=== PATIENT | female | born 1980 | race Caucasian/White ===

== ENCOUNTER → 2018-03-29 14:41 | Outpatient (CLI) | payer MEDICAID, OTHER, SELFPAY ==
--- NOTE | 2018-03-29 14:44 | DI.MRI.S_ITS ---
PROCEDURE: MR SHOULDER LT WO CON INDICATIONS: Left shoulder pain TECHNIQUE: Noncontrast oblique coronal T2 fast spin echo with fat saturation, oblique sagittal T1 spin echo and T2 fast spin echo with fat saturation, axial T1 spin echo and T2 fast spin echo with fat saturation through the shoulder. COMPARISON: None. FINDINGS: Image quality: Diagnostic. Rotator cuff: No full-thickness or high-grade partial-thickness tear of the rotator cuff is identified. There is mild supraspinatus and infraspinatus tendinopathy without significant partial-thickness tearing. The subscapularis and teres minor tendons are intact. There is no significant atrophy of the rotator cuff muscles. Bones and bursae: No acute fracture, dislocation, or suspicious osseous lesion is evident involving the left shoulder bones. No significant degenerative changes of the glenohumeral joint are present. There are mild degenerative changes of the acromioclavicular joint. There is thickening of the subacromial subdeltoid bursa without significant fluid contained within the bursa. Capsule and soft tissues: Evaluation of the labrum and the glenohumeral ligaments is difficult without intra-articular contrast. No acute injuries are suspected. There is a questionable posteroinferior labral tear. The long head of the biceps tendon demonstrates slightly increased signal near the biceps anchor. No significant tearing is evident. IMPRESSION: 1. Mild supraspinatus and infraspinatus tendinopathy. 2. Questionable posteroinferior labral tear. If there is clinical concern for labral pathology, please consider MRI with intra-articular contrast for further evaluation. 3. Mild tendinopathy involving the intra-articular portion of the long head of the biceps tendon. 4. Mild degenerative changes of the acromioclavicular joint. Please correlate clinically to exclude subacromial impingement. Dictated by: Anjel Palmer M.D. on 03/29/2018 at 15:41 Approved by: Anjel Palmer M.D. on 03/29/2018 at 15:45
== END ==
PROVIDERS: Family Provider Family Medicine; PCP Family Medicine; Visit Provider Family Medicine
DX: M19.012 Primary osteoarthritis, left shoulder (principal)
CPT/HCPCS: 73221

== ENCOUNTER 2019-04-26 22:08 | Emergency (ER) | payer MEDICAID, OTHER, SELFPAY ==
[2019-04-26 22:23] VITALS: BP 164/97; PULSE 88; RESP 18; TEMP 36.6; O2SAT 99; BMI 42.9
--- NOTE | 2019-04-26 23:02 | ED.ABDPAIN ---
HPI - Abdominal Pain General Chief Complaint: Abdominal Pain Stated Complaint: LOWER RT SIDED ABD PAIN Time Seen by Provider: 04/26/19 22:37 Source: patient Mode of arrival: ambulatory Limitations: no limitations History of Present Illness HPI narrative: Patient is a 38-year-old female who presents with right lower quadrant pain and back pain. She says it seems he really eating to the back off and on started suddenly today. No nausea no vomiting. Pain comes and goes in waves. No history of kidney stones. She still has her appendix. She was doing well yesterday and this morning. No fever or chills. MD complaint: abdominal pain Severity: moderate Quality: cramping Relieving factors: nothing Exacerbating factors: nothing Related Data Previous Rx's Medication Instructions Recorded triamcinolone acetonide [Nasacort] 0 INTRANASAL QDAY #1 bot 02/10/17 olopatadine [Pataday] 0.2 % OPHTH Q DAY #30 % 04/21/17 buspirone 5 mg tablet 5 mg PO BID #60 tab 03/08/19 triamcinolone acetonide 0.1 % See Rx Instructions TOP BID #30 03/08/19 topical cream gram Allergies Allergy/AdvReac Type Severity Reaction Status Date / Time Penicillins [PENICILLINS] Allergy Severe anaphylaxis Verified 03/08/19 15:32 acetaminophen Allergy Intermediate SWELLING / Verified 03/08/19 15:32 [From DARVOCET-N] RASH propoxyphene Allergy Intermediate SWELLING / Verified 03/08/19 15:32 [From DARVOCET-N] RASH adhesive [ADHESIVE] Allergy Mild paper tape Verified 03/08/19 15:32 codeine [CODEINE] Allergy Mild rash and Verified 03/08/19 15:32 swelling latex [LATEX] Allergy Mild rash Verified 03/08/19 15:32 Review of Systems Review of Systems GENERAL: Denies chills, fatigue, malaise, fever, sweats, travel HEENT: Denies sinus pain, ear pain, sore throat, difficulty swallowing, neck pain RESPIRATORY: Denies dyspnea, cough, wheezing, hemoptysis, sputum. CARDIOVASCULAR: Denies chest pain, palpitations, orthopnea, edema GASTROINTESTINAL: See HPI : Denies dysuria, frequency, incontinence, hematuria, urinary retention, flank pain. MUSCULOSKELETAL: Denies weakness, joint pain, or bony pain SKIN: No rash, no erythema, no pruritus NEUROLOGIC: Denies weakness, dizziness, headache, numbness, change in speech, confusion PSYCHIATRIC: No concerning psychosocial issues. 12 point review of systems is negative except for those stated above and HPI [facility] Medical History Anxiety (Chronic) Depression (Chronic) Surgical History History of arthroscopic knee surgery (Resolved) Status post hysterectomy (Resolved) Status post tonsillectomy and adenoidectomy (Resolved) Social History marital status: Smoking Status: Former smoker alcohol intake: current (ON OCCASION ) substance use type: marijuana Social History marital status: Smoking Status: Former smoker alcohol intake: current (ON OCCASION ) substance use type: marijuana Exam Initial Vital Signs Initial Vital Signs: Vital Signs Temperature 98 F 04/26/19 22:23 Pulse Rate 88 04/26/19 22:23 Respiratory Rate 18 04/26/19 22:23 Blood Pressure 164/97 H 04/26/19 22:23 Pulse Oximetry 99 04/26/19 22:23 GENERAL: Well-appearing, well-nourished and in no acute distress. HEENT: Head atraumatic,EOMI, pupils reactive, face symmetric, moist mucous membranes CARDIOVASCULAR: Regular rate and rhythm without murmurs, rubs or gallops. RESPIRATORY: Breath sounds equal bilaterally, no wheezes rales or rhonchi. ABDOMEN: Soft, no real right lower quadrant pain no guarding no rebound no right upper quadrant : No CVA tenderness EXTREMITIES: Normal range of motion, no clubbing or edema. Neurovascularly intact NEUROLOGICAL: Alert and oriented x4.Normal gait and speech. Cranial nerves II through XII grossly intact. SKIN: Warm, dry, no laceration, no petechiae, no rashes or lesions. Course Orders Ordered: ED Orders 04/26/19 22:43 CT kidney ureter bladder (KUB) Stat 04/26/19 22:57 Complete Blood Count AUTO DIFF Stat Comprehensive Metabolic Panel Stat Lipase Stat Vital Signs - 8 hr 04/26/19 22:23 04/27/19 01:17 Temperature 98 F Pulse Rate 88 65 Respiratory Rate 18 16 Blood Pressure 164/97 H 150/90 H Pulse Oximetry 99 98 MDM - Abdominal Pain Lab Data Attestation: I reviewed the patient's lab results. Result diagrams: 04/26/19 22:57 04/26/19 22:57 Lab Results 04/26/19 04/26/19 Range/Units 22:57 22:57 WBC 11.3 H (4.5-11.0) X10^3/uL RBC 4.43 (4.0-5.2) X10^6/uL Hgb 13.6 (12.0-16.0) g/dL Hct 39.3 (36-46) % MCV 88.7 (80-100) fL MCH 30.7 (26-34) PG MCHC 34.6 (30-36) % RDW 13.0 (11.6-14.8) % Plt Count 279 (150-400) X10^3/uL Neut % (Auto) 53.6 (50-75) % Lymph % (Auto) 35.1 (25-40) % [place] % (Auto) 8.4 (3-14) % Eos % (Auto) 2.3 (2-4) % Baso % (Auto) 0.6 (0-2) % Neut # (Auto) 6100 (0311-7747) /uL Lymph # (Auto) 4000 (4115-6151) /uL Castro # (Auto) 900 (0-900) /uL Eos # (Auto) 300 (0-450) /uL Baso # (Auto) 100 (0-100) /uL Sodium 137 (137-145) mmol/L Potassium 3.6 (3.4-5.1) mmol/L Chloride 104 (98-107) mmol/L Carbon Dioxide 26 (22-32) mmol/L BUN 16 (7-17) mg/dL Creatinine 1.00 (0.52-1.04) mg/dL Estimated GFR > 60.0 (>60) mL/min BUN/Creatinine Ratio 16.0 (6-22) Glucose 99 (70-100) mg/dL Calcium 8.9 (8.4-10.2) mg/dL Total Bilirubin 0.3 (0.2-1.3) mg/dL AST 23 (14-36) IU/L ALT 24 (9-52) IU/L Alkaline Phosphatase 41 (38-126) U/L Total Protein 7.0 (6.3-8.2) g/dL Albumin 4.1 (3.5-5.0) g/dL Globulin 2.9 (1.7-4.1) g/dL Albumin/Globulin Ratio 1.4 (1.0-2.8) Lipase 295 (23-300) U/L Point of care testing: Urine Dip Bedside Urine Glucose Negative Bedside Urine Bilirubin - Negative Bedside Urine Ketone - Negative Urine Specific [place] 1.010 Bedside Urine Occult Blood - Negative Bedside Urine pH 6.0 Bedside Urine Protein - Negative Bedside Urine Urobilinogen - Negative Bedside Urine Nitrite - Negative Bedside Urine Leukocytes +/- 15 Esterase MDM Narrative Medical decision making narrative: 1:[address] scanner has gone down. Patient overall is feeling better. She is requesting to go home. She really has no right lower quadrant pain it seems to be right-sided flank pain. He discussed appendicitis not ruled out. Still possible kidney stone. Mild leukocytosis. She is is reliable she has a PCP Dr. Palma which she is going to try and see tomorrow. She understands warning signs of when to return to the emergency department. Discharge Plan Departure Patient Disposition: Home Clinical Impression: Abdominal pain Qualifiers: Abdominal location: right lower quadrant Qualified Code(s): R10.31 - Right lower quadrant pain Discharge Date/Time: 04/27/19 01:17 Interventions: ED Discharge Assessment Last Done: 04/27/19 01:17 Instructions: DI for Appendicitis -- Adult, DI for Kidney Stones Activity Restrictions/Additional Instructions: *You have been diagnosed with right lower quadrant pain *What to do: Appendicitis has not yet been ruled out. He will likely need a CT scan for this. *Continue to take medications as directed Tylenol or ibuprofen as directed if needed for pain *Follow up with your primary care provider in 2-3 days *Return to ER if you should have increasing right lower quadrant pain, verbal pain, fever, confusion or any new, worsening or concerning symptoms Prescriptions: No Action buspirone 5 mg tablet 5 mg PO BID Qty: 60 RF: 1 triamcinolone acetonide 0.1 % cream See Rx Instructions TOP BID Qty: 30 RF: 0 triamcinolone acetonide [Nasacort] 55 MCG/PUFF aerosol,spray Intranasal QDAY Qty: 1 RF: 3 olopatadine [Pataday] 2.5 ML drops 0.2 % OPHTH Q DAY Qty: 30 RF: 3 Referrals: Ernst Palma MD [Primary Care Provider] -
[2019-04-26 23:08] LABS: Add Manual Diff / Slide Review NO; Basophils Absolute Auto 100 /uL (0-100); Basophils Percent Auto 0.6 % (0-2); Eosinophils Absolute Auto 300 /uL (0-450); Eosinophils Percent Auto 2.3 % (2-4); Hematocrit 39.3 % (36-46); Hemoglobin 13.6 g/dL (12.0-16.0); Lymphocytes Absolute Auto 4000 /uL (1100-4500); Lymphocytes Percent Auto 35.1 % (25-40); Mean Corpuscular HGB Conc 34.6 % (30-36); Mean Corpuscular Hemoglobin 30.7 PG (26-34); Mean Corpuscular Volume 88.7 fL (80-100); Monocytes Absolute Auto 900 /uL (0-900); Monocytes Percent Auto 8.4 % (3-14); Neutrophils Absolute Auto 6100 /uL (1500-7000); Neutrophils Percent Auto 53.6 % (50-75); Platelet Count 279 X10^3/uL (150-400); Red Blood Cell Count 4.43 X10^6/uL (4.0-5.2); White Blood Cell Count 11.3 X10^3/uL (4.5-11.0)
[2019-04-26 23:14] LABS: Alanine Aminotransferase 24 IU/L (9-52); Albumin 4.1 g/dL (3.5-5.0); Albumin Globulin Ratio 1.4 (1.0-2.8); Alkaline Phosphatase 41 U/L (38-126); Aspartate Aminotransferase 23 IU/L (14-36); Bilirubin Total 0.3 mg/dL (0.2-1.3); Blood Urea Nitrogen 16 mg/dL (7-17); Calcium 8.9 mg/dL (8.4-10.2); Carbon Dioxide 26 mmol/L (22-32); Chloride 104 mmol/L (98-107); Estimated Glomerular Filt Rate > 60.0 mL/min (>60); Globulin 2.9 g/dL (1.7-4.1); Glucose 99 mg/dL (70-100); HEMOLYSIS < 15 (0-50); Lipase 295 U/L (23-300); Potassium 3.6 mmol/L (3.4-5.1); Sodium 137 mmol/L (137-145)
[2019-04-27 01:17] VITALS: BP 150/90; PULSE 65; RESP 16; O2SAT 98
== END 2019-04-27 01:17 | disposition home or self-care (01) ==
PROVIDERS: Emergency Provider Emergency Medicine; Family Provider Family Medicine; PCP Family Medicine
DX: R10.31 Right lower quadrant pain (principal)
CPT/HCPCS: 36591; 80053; 81003; 83690; 85025; 99282; 99283

== ENCOUNTER → 2019-05-20 11:30 | Outpatient (CLI) | payer MEDICAID, OTHER, SELFPAY ==
--- NOTE | 2019-05-20 12:28 | DI.CT.S_ITS ---
PROCEDURE: CT ABDOMEN PELVIS W CON INDICATIONS: RLQ pain, elevated WBC TECHNIQUE: After the administration of oral and intravenous contrast, 5 mm thick sections acquired from the diaphragms to the symphysis. 5 mm thick coronal and sagittal reformats were performed. For radiation dose reduction, the following was used: automated exposure control, adjustment of mA and/or kV according to patient size. COMPARISON: [facility], CT, ABDOMEN/PELVIS WITH CONTRAST, 07/05/2007, 13:55. FINDINGS: Image quality: Excellent. ABDOMEN: Lung bases: Lung bases are clear. Heart size is normal. Solid organs: Liver is normal in size and enhancement. Subcentimeter right hepatic lobe hypodensity is too small to characterize but likely represent hemangioma. This was not visualized on the comparison study likely related to phase of contrast-enhancement. Gallbladder is surgically absent. Biliary system is non-dilated. Pancreas enhances normally. Spleen is normal in size and enhancement. No adrenal nodules. Kidneys are normal in size and enhancement, without hydronephrosis. Peritoneum and bowel: Stomach, small bowel, and colon loops are normal in caliber and wall thickness. No free fluid or air. The visualized appendix appears normal. Scattered colonic diverticula without acute inflammation. Nodes and vessels: No retroperitoneal or mesenteric adenopathy. Aorta and inferior vena cava are normal in caliber. Miscellaneous: No ventral hernias. PELVIS: Genitourinary: Bladder wall thickness is normal. Miscellaneous: No inguinal hernias or adenopathy. Bones: No suspicious bony lesions. No acute vertebral body compression fractures. Multilevel lumbar spondylosis most severe at L5-S1. IMPRESSION: 1. CT abdomen and pelvis without acute abnormalities to explain patient's symptoms. 2. Normal appendix. 3. Scattered, scant colonic diverticula without acute inflammation. 4. Status post cholecystectomy. 5. Subcentimeter right hepatic lobe hypodensity which is to small to accurately characterize. This likely represents a hepatic hemangioma. This was not previously visualized comparison study dated 07/05/2007, likely related to phase of contrast enhancement. Dictated by: Dhaval Scott M.D. on 05/20/2019 at 13:52 Approved by: Dhaval Scott M.D. on 05/20/2019 at 13:59
== END ==
PROVIDERS: PCP Family Medicine; Visit Provider Family Medicine
DX: R10.31 Right lower quadrant pain (principal); D72.829 Elevated white blood cell count, unspecified; K57.90 Diverticulosis of intestine, part unspecified, without perforation or abscess without bleeding; Z90.49 Acquired absence of other specified parts of digestive tract
CPT/HCPCS: 74177; Q9967

== ENCOUNTER 2019-10-25 09:41 | Emergency (ER) | payer MEDICAID, SELFPAY ==
[2019-10-25 09:45] VITALS: BP 156/94; PULSE 78; RESP 18; TEMP 36.6; O2SAT 100; BMI 48.0
--- NOTE | 2019-10-25 09:58 | DI.RAD.S_ITS ---
PROCEDURE: XR CHEST 2V INDICATIONS: Left sided chest pain that radiates to back. TECHNIQUE: 2 views of the chest were acquired. COMPARISON: [facility], , CHEST 1 VIEW, 10/08/2015, 12:13. FINDINGS: Surgical changes and devices: None. Lungs and pleura: Mild increase of the vascular markings and bilateral hilar region is seen. No definite focal infiltrate. No pleural effusions or pneumothorax. Mediastinum: Mediastinal contours are normal. Heart size is normal. Bones and chest wall: No suspicious bony abnormalities. Soft tissues appear unremarkable. IMPRESSION: Findings may represent mild reactive airway disease. No definite focal infiltrate. No pleural effusion or pneumothorax. Dictated by: Earl Baker M.D. on 10/25/2019 at 11:17 Approved by: Earl Baker M.D. on 10/25/2019 at 11:18
--- NOTE | 2019-10-25 10:25 | ED_ITS ---
HPI - Chest Pain General Chief Complaint: Chest Pain Stated Complaint: chest pain Time Seen by Provider: 10/25/19 10:24 Source: patient Mode of arrival: Ambulatory Limitations: no limitations History of Present Illness HPI narrative: Patient year old female who presents with left-sided rib pain. It started this morning when she woke up. It's right underneath her left breast it's constant in nature nonradiating it doesn't hurt when she breathes or palpates. She has never had anything like this in the past she did take 600 mg of ibuprofen prior to arrival it has not helped. She denies any shortness of breath no pain with exertion it does not hurt when she moves or changes position. She denies any physical activity. MD complaint: chest pain Onset (ago): hour(s) Duration: constant Onset: during rest Pain location: left chest Severity: mild Quality: sharp Pain radiation: none Relieving factors: nothing Exacerbating factors: nothing Related Data Home Medications Medication Instructions Recorded Confirmed buspirone 5 mg PO BID PRN 10/25/19 10/25/19 olopatadine [Pataday] 0.2 % OPHTH DAILY 10/25/19 10/25/19 triamcinolone acetonide [Nasacort] 1 spray INTRANASAL QDAY 10/25/19 10/25/19 Previous Rx's Medication Instructions Recorded triamcinolone acetonide 0.1 % See Rx Instructions TOP BID #30 03/08/19 topical cream gram omeprazole magnesium 20 mg 20 mg PO DAILY #30 tab 10/18/19 tablet,delayed release Allergies Allergy/AdvReac Type Severity Reaction Status Date / Time Penicillins [PENICILLINS] Allergy Severe anaphylaxis Verified 10/25/19 09:55 propoxyphene Allergy Intermediate SWELLING / Verified 10/25/19 09:55 [From LEONID-N] RASH adhesive [ADHESIVE] Allergy Mild paper tape Verified 10/25/19 09:55 codeine [CODEINE] Allergy Mild rash and Verified 10/25/19 09:55 swelling latex [LATEX] Allergy Mild rash Verified 10/25/19 09:55 Review of Systems Review of Systems Narrative: GENERAL: Denies chills, fatigue, malaise, fever, sweats, travel HEENT: Denies sinus pain, ear pain, sore throat, difficulty swallowing, neck pain RESPIRATORY: Denies dyspnea, cough, wheezing, hemoptysis, sputum. CARDIOVASCULAR: See HPI GASTROINTESTINAL: Denies nausea, vomiting, abdominal pain, diarrhea, constipatio n, melena. : Denies dysuria, frequency, incontinence, hematuria, urinary retention, flank pain. MUSCULOSKELETAL: Denies weakness, joint pain, or bony pain SKIN: No rash, no erythema, no pruritus NEUROLOGIC: Denies weakness, dizziness, headache, numbness, change in speech, confusion PSYCHIATRIC: No concerning psychosocial issues. 12 point review of systems is negative except for those stated above and HPI Patient History Medical History Anxiety (Chronic) Depression (Chronic) GERD (gastroesophageal reflux disease) (Acute) Surgical History History of arthroscopic knee surgery (Resolved) Status post hysterectomy (Resolved) Status post tonsillectomy and adenoidectomy (Resolved) Social History marital status: Smoking Status: Former smoker alcohol intake: current (ON OCCASION ) substance use type: marijuana Smoking Status: Former smoker alcohol intake frequency: 0-2 drinks per day Substance Use Type: marijuana Exam Initial Vital Signs Initial Vital Signs: Vital Signs Temperature 97.8 F 10/25/19 09:45 Pulse Rate 78 10/25/19 09:45 Respiratory Rate 18 10/25/19 09:45 Blood Pressure 156/94 H 10/25/19 09:45 Pulse Oximetry 100 10/25/19 09:45 GENERAL: Well-appearing, well-nourished and in no acute distress. HEENT: Head atraumatic,EOMI, pupils reactive, face symmetric, moist mucous membranes CARDIOVASCULAR: Regular rate and rhythm without murmurs, rubs or gallops. No rash pain is not reproducible to palpation. RESPIRATORY: Breath sounds equal bilaterally, no wheezes rales or rhonchi. ABDOMEN: Soft, nontender. Normoactive bowel sounds all 4 quadrants. No guarding or rebound. EXTREMITIES: Normal range of motion, no clubbing or edema. Neurovascularly intact NEUROLOGICAL: Alert and oriented x4.Normal gait and speech. SKIN: Warm, dry, no laceration, no petechiae, no rashes or lesions. Scores HEART Score Heart Score history: Slightly Suspicious Heart Score EKG: Normal Heart Score Age: < 45 years old Heart Score risk factors: No known risk factors Heart Score troponin: < or = to normal limit Heart Score Total: 0 PERC Score Age greater than or equal to 50 years: No Heart rate greater than or equal to 100 bpm: No Room Air O2 Sat less than 95%: No Unilateral leg swelling: No Recent trauma or surgery: No Hemoptysis: No Prior PE or DVT: No Hormone Use: No Total PERC Score: 0 Course Orders Ordered: ED Orders 10/25/19 09:58 Chest [XR chest 2V] Stat EKG-12 Lead Stat 10/25/19 10:27 Complete Blood Count AUTO DIFF Stat Comprehensive Metabolic Panel Stat Lipase Stat Magnesium Stat Partial Thromboplastin Time Stat Prothrombin Time INR Stat Troponin & CK Cardiac Panel Stat 10/25/19 12:38 Troponin I Stat Vital Signs Vital signs: Vital Signs - 8 hr 10/25/19 09:45 10/25/19 11:28 10/25/19 12:30 Temperature 97.8 F Pulse Rate 78 62 80 Respiratory Rate 18 18 18 Blood Pressure 156/94 H Blood Pressure [Right Arm] 149/99 H 150/78 H Pulse Oximetry 100 98 99 10/25/19 13:28 Temperature Pulse Rate 72 Respiratory Rate 15 Blood Pressure 123/89 Blood Pressure [Right Arm] Pulse Oximetry 99 MDM - Chest Pain Lab Data Attestation: I reviewed the patient's lab results. Result diagrams: 10/25/19 10:27 10/25/19 10:27 Labs: Lab Results 10/25/19 10/25/19 10/25/19 Range/Units 10:27 10:27 10:27 WBC 7.9 (4.5-11.0) X10^3/uL RBC 4.68 (4.0-5.2) X10^6/uL Hgb 14.5 (12.0-16.0) g/dL Hct 42.0 (36-46) % MCV 89.8 (80-100) fL MCH 30.9 (26-34) PG MCHC 34.4 (30-36) % RDW 13.1 (11.6-14.8) % Plt Count 323 (150-400) X10^3/uL Neut % (Auto) 61.6 (50-75) % Lymph % (Auto) 27.7 (25-40) % Bath % (Auto) 8.3 (3-14) % Eos % (Auto) 1.6 L (2-4) % Baso % (Auto) 0.8 (0-2) % Neut # (Auto) 4800 (6774-9369) /uL Lymph # (Auto) 2200 (5972-8539) /uL Bath # (Auto) 700 (0-900) /uL Eos # (Auto) 100 (0-450) /uL Baso # (Auto) 100 (0-100) /uL PT 11.8 (10.1-12.7) SECONDS INR 1.0 (0.9-1.3) APTT 31 (26.4-36.2) SECONDS Sodium 138 (137-145) mmol/L Potassium 4.1 (3.4-5.1) mmol/L Chloride 104 (98-107) mmol/L Carbon Dioxide 26 (22-32) mmol/L BUN 11 (7-17) mg/dL Creatinine 0.90 (0.52-1.04) mg/dL Estimated GFR > 60.0 (>60) mL/min BUN/Creatinine Ratio 12.2 (6-22) Glucose 100 (70-100) mg/dL Calcium 9.2 (8.4-10.2) mg/dL Magnesium 1.8 (1.6-2.3) mg/dL Total Bilirubin 0.7 (0.2-1.3) mg/dL AST 59 H (14-36) IU/L ALT 58 H (<35) IU/L Alkaline Phosphatase 50 (38-126) U/L Total Creatine Kinase 83 (30-135) U/L CK-MB (CK-2) TNP CK-MB (CK-2) Rel Index TNP Troponin I < 0.012 (0.01-0.034) ng/mL Total Protein 7.5 (6.3-8.2) g/dL Albumin 4.5 (3.5-5.0) g/dL Globulin 3.0 (1.7-4.1) g/dL Albumin/Globulin Ratio 1.5 (1.0-2.8) Lipase 160 (23-300) U/L 10/25/19 Range/Units 12:38 WBC (4.5-11.0) X10^3/uL RBC (4.0-5.2) X10^6/uL Hgb (12.0-16.0) g/dL Hct (36-46) % MCV (80-100) fL MCH (26-34) PG MCHC (30-36) % RDW (11.6-14.8) % Plt Count (150-400) X10^3/uL Neut % (Auto) (50-75) % Lymph % (Auto) (25-40) % Bath % (Auto) (3-14) % Eos % (Auto) (2-4) % Baso % (Auto) (0-2) % Neut # (Auto) (1798-0568) /uL Lymph # (Auto) (8639-9870) /uL Bath # (Auto) (0-900) /uL Eos # (Auto) (0-450) /uL Baso # (Auto) (0-100) /uL PT (10.1-12.7) SECONDS INR (0.9-1.3) APTT (26.4-36.2) SECONDS Sodium (137-145) mmol/L Potassium (3.4-5.1) mmol/L Chloride (98-107) mmol/L Carbon Dioxide (22-32) mmol/L BUN (7-17) mg/dL Creatinine (0.52-1.04) mg/dL Estimated GFR (>60) mL/min BUN/Creatinine Ratio (6-22) Glucose (70-100) mg/dL Calcium (8.4-10.2) mg/dL Magnesium (1.6-2.3) mg/dL Total Bilirubin (0.2-1.3) mg/dL AST (14-36) IU/L ALT (<35) IU/L Alkaline Phosphatase (38-126) U/L Total Creatine Kinase (30-135) U/L CK-MB (CK-2) CK-MB (CK-2) Rel Index Troponin I < 0.012 (0.01-0.034) ng/mL Total Protein (6.3-8.2) g/dL Albumin (3.5-5.0) g/dL Globulin (1.7-4.1) g/dL Albumin/Globulin Ratio (1.0-2.8) Lipase (23-300) U/L Imaging Data Chest x-ray: Radiologist's impression: PROCEDURE: XR CHEST 2V INDICATIONS: Left sided chest pain that radiates to back. TECHNIQUE: 2 views of the chest were acquired. COMPARISON: [facility], , CHEST 1 VIEW, 10/08/2015, 12:13. FINDINGS: Surgical changes and devices: None. Lungs and pleura: Mild increase of the vascular markings and bilateral hilar r egion is seen. No definite focal infiltrate. No pleural effusions or pneumothorax. Mediastinum: Mediastinal contours are normal. Heart size is normal. Bones and chest wall: No suspicious bony abnormalities. Soft tissues appear unremarkable. IMPRESSION: Findings may represent mild reactive airway disease. No definite focal infiltrate. No pleural effusion or pneumothorax. Dictated by: Earl Baker M.D. on 10/25/2019 at 11:17 ECG Data Attestation: I personally reviewed and interpreted this ECG as follows: Prior ECG tracings: available for review Interpretation: Normal sinus rhythm rate 69 p.r. interval 173 QRS [address] elevation depression or T-wave inversions. Similar to previous EKG she is noted to have Q-wave noted in lead 3 and AVF similar to previous EKG in December 2017 MDM Narrative Medical decision making narrative: Patient is low risk for cardiac disease and PE. This seems to be likely musculoskeletal rather than cardiac. She has 2- troponins. At this time I recommend follow-up with her PCP in regards to any further testing. Discharge Plan Departure Patient Disposition: Home Clinical Impression: Atypical chest pain Discharge Date/Time: 10/25/19 13:30 Instructions: DI for Atypical Chest Pain Activity Restrictions/Additional Instructions: *You have been diagnosed with atypical chest *What to do: At this time blood work EKG and chest x-ray are reassuring. You may or may not require further cardiac testing with your primary care provider such as a stress test and/or echocardiogram. *Continue to take medications as directed Ibuprofen 600 mg every 6-8 hours if needed for [id number] pain *Follow up with your primary care provider in 2-3 days *Return to ER if you should have increasing or worsening chest pain shortness of breath palpitations or any new, worsening or concerning symptoms Prescriptions: No Action triamcinolone acetonide 0.1 % cream See Rx Instructions TOP BID Qty: 30 RF: 0 Prilosec OTC 20 mg tablet,delayed release (/EC) 20 mg PO DAILY Qty: 30 RF: 1 buspirone 5 mg tablet 5 mg PO BID PRN (Reason: Anxiety) RF: 0 triamcinolone acetonide [Nasacort] 55 MCG/PUFF aerosol,spray 1 spray Intranasal QDAY RF: 0 olopatadine [Pataday] 2.5 ML drops 0.2 % OPHTH DAILY RF: 0 Referrals: Ernst Palma MD [Primary Care Provider] -
[2019-10-25 10:40] LABS: Add Manual Diff / Slide Review NO; Basophils Absolute Auto 100 /uL (0-100); Basophils Percent Auto 0.8 % (0-2); Eosinophils Absolute Auto 100 /uL (0-450); Eosinophils Percent Auto 1.6 % (2-4); Hemoglobin 14.5 g/dL (12.0-16.0); Lymphocytes Absolute Auto 2200 /uL (1100-4500); Lymphocytes Percent Auto 27.7 % (25-40); Mean Corpuscular HGB Conc 34.4 % (30-36); Mean Corpuscular Hemoglobin 30.9 PG (26-34); Mean Corpuscular Volume 89.8 fL (80-100); Monocytes Absolute Auto 700 /uL (0-900); Monocytes Percent Auto 8.3 % (3-14); Neutrophils Absolute Auto 4800 /uL (1500-7000); Neutrophils Percent Auto 61.6 % (50-75); Platelet Count 323 X10^3/uL (150-400); Red Blood Cell Count 4.68 X10^6/uL (4.0-5.2); Red Cell Distribution Width 13.1 % (11.6-14.8); White Blood Cell Count 7.9 X10^3/uL (4.5-11.0)
[2019-10-25 10:41] LABS: Prothrombin Time 11.8 SECONDS (10.1-12.7)
[2019-10-25 10:44] LABS: PTT Partial Thromboplastin Tim 31 SECONDS (26.4-36.2)
[2019-10-25 10:46] LABS: Alanine Aminotransferase 58 IU/L (<35); Albumin 4.5 g/dL (3.5-5.0); Albumin Globulin Ratio 1.5 (1.0-2.8); Alkaline Phosphatase 50 U/L (38-126); Aspartate Aminotransferase 59 IU/L (14-36); BUN Creatinine Ratio 12.2 (6-22); Bilirubin Total 0.7 mg/dL (0.2-1.3); Blood Urea Nitrogen 11 mg/dL (7-17); Calcium 9.2 mg/dL (8.4-10.2); Carbon Dioxide 26 mmol/L (22-32); Chloride 104 mmol/L (98-107); Creatine Kinase 83 U/L (30-135); Estimated Glomerular Filt Rate > 60.0 mL/min (>60); Glucose 100 mg/dL (70-100); HEMOLYSIS < 15 (0-50); Lipase 160 U/L (23-300); Magnesium 1.8 mg/dL (1.6-2.3); Potassium 4.1 mmol/L (3.4-5.1); Sodium 138 mmol/L (137-145); Total Protein 7.5 g/dL (6.3-8.2)
[2019-10-25 10:58] LABS: Troponin I < 0.012 ng/mL (0.01-0.034)
[2019-10-25 11:28] VITALS: BP 149/99; PULSE 62; RESP 18; O2SAT 98
[2019-10-25 12:30] VITALS: BP 150/78; PULSE 80; RESP 18; O2SAT 99
[2019-10-25 13:13] LABS: Troponin I < 0.012 ng/mL (0.01-0.034)
[2019-10-25 13:28] VITALS: BP 123/89; PULSE 72; RESP 15; O2SAT 99
== END 2019-10-25 13:30 | disposition home or self-care (01) ==
PROVIDERS: Emergency Provider Emergency Medicine; PCP Family Medicine
DX: R07.89 Other chest pain (principal)
CPT/HCPCS: 36415; 71046; 80053; 82550; 83690; 83735; 84484; 85025; 85610; 85730; 93005; 93010; 99283; 99285

== ENCOUNTER 2019-12-08 08:13 | Emergency (ER) | payer MEDICAID, OTHER, SELFPAY ==
[2019-12-08 08:33] VITALS: BP 164/104; PULSE 78; RESP 18; TEMP 37.1; O2SAT 100; BMI 46.7
--- NOTE | 2019-12-08 09:09 | DI.CT.S_ITS ---
PROCEDURE: CT ABDOMEN PELVIS W CON INDICATIONS: right lower quadrant abdominal pain. Persistent recurring diarrhea for the last 3-4 months. TECHNIQUE: After the administration of oral and intravenous contrast, 5 mm thick sections acquired from the diaphragms to the symphysis. 5 mm thick coronal and sagittal reformats were performed. For radiation dose reduction, the following was used: automated exposure control, adjustment of mA and/or kV according to patient size. COMPARISON: [facility], CT, ABDOMEN/PELVIS WITH CONTRAST, 07/05/2007, 13:55. [facility], CT, CT ABDOMEN PELVIS W CON, 05/20/2019, 12:33. FINDINGS: Image quality: Excellent. ABDOMEN: Lung bases: Lung bases are clear. Heart size is normal. A small hiatal hernia is incidentally noted. Solid organs: Liver is normal in size. A stable low-density focus can be seen within the right liver anteriorly, as on series 2 image 24 measuring 8 mm. Gallbladder has been removed. Biliary system is non-dilated. Pancreas enhances normally. Spleen is normal in size and enhancement. No adrenal nodules. Kidneys are normal in size and enhancement, without hydronephrosis. Peritoneum and bowel: In this patient with this given history, scrutiny is given to the appendix. The appendix is well-seen and is normal. It is not dilated. No surrounding inflammatory changes are seen. The right lower quadrant inflammatory changes are seen. Stomach, small bowel, and colon loops are normal in caliber and wall thickness. No free fluid or air. Minimal sigmoid diverticulosis is seen, without findings of active diverticulitis. Nodes and vessels: No retroperitoneal or mesenteric adenopathy. Aorta and inferior vena cava are normal in caliber. Miscellaneous: No ventral hernias. PELVIS: Genitourinary: Bladder wall thickness is normal. Pelvic clips are seen. Miscellaneous: No inguinal hernias or adenopathy. Bones: No suspicious bony lesions. No vertebral body compression fractures. Mild levoconvex scoliotic curvature is noted. Age-appropriate bony degenerative changes are seen. Transitional lumbar anatomy is noted, with a partially lumbarized S1. IMPRESSION: Normal appendix. No focal right lower quadrant inflammatory changes. No imaging explanation for persistent recurring diarrhea can be seen. Incidental note is made of: Small hiatal hernia Stable subcentimeter liver focus, potentially relating to a hemangioma. Cholecystectomy Pelvic clips Diverticulosis is seen, without findings of active diverticulitis. Transitional lumbar anatomy, with a partially lumbarized S1. Dictated by: Edward Bruce M.D. on 12/08/2019 at 8:25 Approved by: Edward Bruce M.D. on 12/08/2019 at 8:31
[2019-12-08 09:25] LABS: Add Manual Diff / Slide Review NO; Basophils Absolute Auto 100 /uL (0-100); Basophils Percent Auto 0.9 % (0-2); Eosinophils Absolute Auto 100 /uL (0-450); Eosinophils Percent Auto 1.3 % (2-4); Hematocrit 42.7 % (36-46); Hemoglobin 14.9 g/dL (12.0-16.0); Lymphocytes Absolute Auto 2200 /uL (1100-4500); Lymphocytes Percent Auto 29.5 % (25-40); Mean Corpuscular HGB Conc 34.9 % (30-36); Mean Corpuscular Hemoglobin 31.1 PG (26-34); Mean Corpuscular Volume 88.9 fL (80-100); Monocytes Absolute Auto 600 /uL (0-900); Monocytes Percent Auto 8.7 % (3-14); Neutrophils Absolute Auto 4400 /uL (1500-7000); Neutrophils Percent Auto 59.6 % (50-75); Platelet Count 321 X10^3/uL (150-400); Red Cell Distribution Width 12.7 % (11.6-14.8); White Blood Cell Count 7.3 X10^3/uL (4.5-11.0)
[2019-12-08 09:31] LABS: INR 1.1 (0.9-1.3); Prothrombin Time 12.3 SECONDS (10.1-12.7)
[2019-12-08] MEDS: KETOROLAC 60 MG/2 ML VIAL 30 MG IV (09:33)
[2019-12-08 09:34] LABS: PTT Partial Thromboplastin Tim 32 SECONDS (26.4-36.2)
[2019-12-08] MEDS: SODIUM CHLORIDE 0.9% 1,000 ML 150 ML IV (09:34)
[2019-12-08] MEDS: ONDANSETRON 4 MG/2 ML INJ IV (09:34)
[2019-12-08 09:44] VITALS: BP 174/96; PULSE 61; RESP 18; O2SAT 99
[2019-12-08 09:55] LABS: Lactate (Lactic Acid) 0.7 mmol/L (0.7-2.1)
[2019-12-08 09:56] LABS: Alanine Aminotransferase 23 IU/L (<35); Albumin 4.6 g/dL (3.5-5.0); Albumin Globulin Ratio 1.4 (1.0-2.8); Alkaline Phosphatase 42 U/L (38-126); Aspartate Aminotransferase 29 IU/L (14-36); BUN Creatinine Ratio 16.3 (6-22); Bilirubin Total 0.8 mg/dL (0.2-1.3); Blood Urea Nitrogen 13 mg/dL (7-17); Calcium 9.2 mg/dL (8.4-10.2); Carbon Dioxide 27 mmol/L (22-32); Chloride 104 mmol/L (98-107); Estimated Glomerular Filt Rate > 60.0 mL/min (>60); Globulin 3.4 g/dL (1.7-4.1); Glucose 101 mg/dL (70-100); HEMOLYSIS 28 (0-50); Lactate Dehydrogenase 541 U/L (313-618); Lipase 184 U/L (23-300); Potassium 4.1 mmol/L (3.4-5.1); Sodium 139 mmol/L (137-145)
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
[2019-12-08 11:09] VITALS: BP 169/85; PULSE 55; RESP 20; O2SAT 99
== END 2019-12-08 11:12 | disposition home or self-care (01) ==
PROVIDERS: Emergency Provider Emergency Medicine; PCP Family Medicine
DX: R10.31 Right lower quadrant pain (principal); R19.7 Diarrhea, unspecified; I10 Essential (primary) hypertension
CPT/HCPCS: 36415; 74177; 80053; 81003; 81025; 83605; 83615; 83690; 85025; 85610; 85730; 96361; 96374; 96375; 99284; J1885; J2405; Q9967

== ENCOUNTER → 2019-12-09 12:18 | Outpatient (CLI) | payer MEDICAID, OTHER, SELFPAY ==
[2019-12-15 09:10] LABS: (tTG) Ab, IgA < 1 U/mL
== END ==
PROVIDERS: PCP Family Medicine; Visit Provider Family Medicine
DX: R10.9 Unspecified abdominal pain (principal); R14.0 Abdominal distension (gaseous); R19.7 Diarrhea, unspecified
CPT/HCPCS: 36415; 82784; 83516; 86255

== ENCOUNTER → 2019-12-13 12:15 | Outpatient (CLI) | payer MEDICAID, OTHER, SELFPAY | PROVIDERS: PCP Family Medicine; Visit Provider Family Medicine | DX: R10.9 Unspecified abdominal pain (principal); R19.7 Diarrhea, unspecified | CPT/HCPCS: 87045; 87177; 87899 ==

== ENCOUNTER → 2020-08-21 09:02 | Outpatient (CLI) | payer OTHER, SELFPAY ==
--- NOTE | 2020-08-21 09:03 | DI.RAD.S_ITS ---
PROCEDURE: XR HAND RT MIN 3V INDICATIONS: hand pain and swelling TECHNIQUE: 3 views of the hand(s) acquired. COMPARISON: None. FINDINGS: Bones: No fractures or dislocations. Carpal bones are normally aligned. No suspicious bony lesions. Soft tissues: No suspicious soft tissue calcifications. IMPRESSION: Joints are well maintained and no inflammatory arthritic changes. Dictated by: Juan Alberto MENDEZ Interpreted: Ceh Nguyen MD on 08/21/2020 at 9:12 Approved by: Che Nguyen MD, PhD on 08/21/2020 at 13:03
[2020-08-21 10:00] LABS: Add Manual Diff / Slide Review NO; Basophils Absolute Auto 0 /uL (0-100); Basophils Percent Auto 0.5 % (0-2); Eosinophils Absolute Auto 100 /uL (0-450); Eosinophils Percent Auto 1.6 % (2-4); Hematocrit 43.4 % (36-46); Hemoglobin 14.9 g/dL (12.0-16.0); Lymphocytes Absolute Auto 2600 /uL (1100-4500); Lymphocytes Percent Auto 29.6 % (25-40); Mean Corpuscular HGB Conc 34.2 % (30-36); Mean Corpuscular Hemoglobin 30.9 PG (26-34); Mean Corpuscular Volume 90.2 fL (80-100); Monocytes Absolute Auto 800 /uL (0-900); Monocytes Percent Auto 8.8 % (3-14); Neutrophils Absolute Auto 5300 /uL (1500-7000); Neutrophils Percent Auto 59.5 % (50-75); Platelet Count 307 X10^3/uL (150-400); Red Blood Cell Count 4.81 X10^6/uL (4.0-5.2); Red Cell Distribution Width 13.2 % (11.6-14.8); White Blood Cell Count 8.8 X10^3/uL (4.5-11.0)
[2020-08-21 10:28] LABS: BUN Creatinine Ratio 13.9 (6-22); Blood Urea Nitrogen 11 mg/dL (7-17); C-Reactive Protein Quant 1.1 mg/dL (<1.0); Calcium 9.2 mg/dL (8.4-10.2); Carbon Dioxide 27 mmol/L (22-32); Chloride 104 mmol/L (98-107); Estimated Glomerular Filt Rate > 60.0 mL/min (>60); Glucose 102 mg/dL (70-100); HEMOLYSIS < 15 (0-50); Potassium 4.5 mmol/L (3.4-5.1); Sodium 137 mmol/L (137-145); Uric Acid 5.2 mg/dL (2.5-6.2)
[2020-08-21 10:30] LABS: Rheumatoid Factor < 8.6 IU/mL (<12.0)
[2020-08-21 10:42] LABS: Erythrocyte Sedimentation Rate 2 MM/HR (0-20)
[2020-08-23 22:41] LABS: CCP Antibodies IgG/IgA <1 units (0-19)
== END ==
LOC: RAD 09:03
PROVIDERS: PCP Family Medicine; Referring Provider Family Medicine; Visit Provider Family Medicine
DX: M25.541 Pain in joints of right hand (principal); M79.89 Other specified soft tissue disorders
CPT/HCPCS: 36415; 73130; 80048; 84550; 85025; 85651; 86140; 86200; 86430

== ENCOUNTER 2021-04-05 19:25 | Emergency (ER) | payer OTHER, SELFPAY ==
[2021-04-05 19:40] VITALS: BP 216/107; PULSE 87; RESP 20; O2SAT 99; BMI 47.5
[2021-04-05 21:19] LABS: RBC Urine None Seen (0-5/HPF); WBC Urine None Seen (0-5/HPF)
[2021-04-05 21:22] LABS: UR Morphine/Opiate cutoff 300 Negative (Negative); Ur Creatinine Normal (Normal); Ur Specific Gravity Normal (Normal); Urine Amphetamines Negative (Negative); Urine Barbiturates Negative (Negative); Urine Benzodiazepines Negative (Negative); Urine Cocaine Negative (Negative); Urine MDMA Negative (Negative); Urine Methadone Negative (Negative); Urine Methamphetamines Negative (Negative); Urine Oxycodone Negative (Negative); Urine Phencyclidine Negative (Negative); Urine Tetrahydrocannabinol Positive (Negative); Urine Tricyclic Antidepressant Negative (Negative); Urine pH Normal (Normal)
[2021-04-05 21:22] LABS: Add Manual Diff / Slide Review NO; Basophils Absolute Auto 0 /uL (0-100); Basophils Percent Auto 0.4 % (0-2); Eosinophils Absolute Auto 0 /uL (0-450); Eosinophils Percent Auto 0.2 % (2-4); Hematocrit 44.1 % (36-46); Lymphocytes Absolute Auto 1600 /uL (1100-4500); Lymphocytes Percent Auto 15.1 % (25-40); Mean Corpuscular HGB Conc 34.1 % (30-36); Mean Corpuscular Volume 91.1 fL (80-100); Monocytes Absolute Auto 600 /uL (0-900); Monocytes Percent Auto 5.5 % (3-14); Neutrophils Absolute Auto 8600 /uL (1500-7000); Neutrophils Percent Auto 78.8 % (50-75); Platelet Count 280 X10^3/uL (150-400); Red Blood Cell Count 4.84 X10^6/uL (4.0-5.2); Red Cell Distribution Width 12.9 % (11.6-14.8); White Blood Cell Count 10.9 X10^3/uL (4.5-11.0)
[2021-04-05 21:31] LABS: Alanine Aminotransferase 26 IU/L (<35); Albumin 4.6 g/dL (3.5-5.0); Albumin Globulin Ratio 1.4 (1.0-2.8); Alkaline Phosphatase 50 U/L (38-126); Aspartate Aminotransferase 28 IU/L (14-36); BUN Creatinine Ratio 12.7 (6-22); Bilirubin Total 0.4 mg/dL (0.2-1.3); Blood Urea Nitrogen 10 mg/dL (7-17); Calcium 9.8 mg/dL (8.4-10.2); Carbon Dioxide 24 mmol/L (22-32); Chloride 106 mmol/L (98-107); Estimated Glomerular Filt Rate > 60.0 mL/min (>60); Ethanol (ETOH) < 10 mg/dL; Globulin 3.4 g/dL (1.7-4.1); Glucose 140 mg/dL (70-100); HEMOLYSIS < 15 (0-50); Potassium 3.9 mmol/L (3.4-5.1); Sodium 136 mmol/L (137-145)
[2021-04-05 21:36] LABS: Bacteria Urine Few (2-10); Culture Indicated Urine Cult Not Indicated; Squamous Epithelial Cell Urine 0-1 /HPF (0-5/HPF)
--- NOTE | 2021-04-05 21:44 | ED_ITS ---
HPI - Psych General Chief Complaint: Psychiatric Symptoms Stated Complaint: L wrist Lac Time Seen by Provider: 04/05/21 19:47 Source: patient and EMS Mode of arrival: EMS Limitations: no limitations History of Present Illness HPI Narrative: 40-year-old female former smoker with history of anxiety presents with a chief complaint of an argument with her this evening that triggered her anxiety and anger to a new level and she fell no other option but to injure herself. She cause a self-inflicted, deep complex laceration on the volar aspect of her left wrist. She denies any numbness, tingling or weakness. She has never tried hurting herself before. She is tearful, grateful and already denying any ongoing suicidal or homicidal ideation or by her arrival. MD complaint: other Onset (ago): minute(s) Duration: resolved prior to arrival History of same: No Relieving factors: other Exacerbating factors: other Context: significant life stressor Associated psychiatric symptoms: depression Associated symptoms: denies other symptoms Treatments prior to arrival: none If self harm: admits thoughts of self harm and has plan Related Data Home Medications Medication Instructions Recorded Confirmed olopatadine [Pataday] 0.2 % OPHTH DAILY 10/25/19 08/21/20 triamcinolone acetonide [Nasacort] 1 spray INTRANASAL QDAY 10/25/19 08/21/20 Previous Rx's Medication Instructions Recorded hyoscyamine sulfate 0.125 mg tablet 0.125 mg PO QID PRN #30 tab 11/28/19 omeprazole magnesium 20 mg 20 mg PO DAILY #30 tab 12/06/19 tablet,delayed release loperamide 2 mg PO Q4H #10 cap 12/08/19 triamcinolone acetonide 0.1 % See Rx Instructions TOP BID #30 02/23/20 topical cream gram buspirone 5 mg tablet 5 mg PO BID #60 tab 08/21/20 diclofenac sodium 75 mg 75 mg PO BID #30 tab 08/21/20 tablet,delayed release clindamycin HCl 300 mg PO TID 7 Days #21 cap 04/05/21 Allergies Allergy/AdvReac Type Severity Reaction Status Date / Time Penicillins [PENICILLINS] Allergy Severe anaphylaxis Verified 04/05/21 19:40 propoxyphene Allergy Intermediate SWELLING / Verified 04/05/21 19:40 [From DARVOCET-N] RASH adhesive [ADHESIVE] Allergy Mild paper tape Verified 04/05/21 19:40 codeine [CODEINE] Allergy Mild rash and Verified 04/05/21 19:40 swelling latex [LATEX] Allergy Mild rash Verified 04/05/21 19:40 Review of Systems Constitutional Constitutional: Denies chills, Denies fatigue, Denies fever(s), Denies frequent falls, Denies lethargy and Denies weakness Eyes Eyes: Denies change in vision, Denies eye discharge, Denies irritation and Denies loss of vision ENT Ears, Nose, Mouth, and Throat: Denies change in voice, Denies dizziness, Denies neck pain, Denies sore throat and Denies throat swelling Cardiovascular Cardiovascular: Denies chest pain, Denies irregular heart rhythm, Denies lightheadedness, Denies palpitations, Denies dyspnea, Denies dyspnea on exertion and Denies orthopnea Respiratory Respiratory: Denies cough, Denies dyspnea, Denies dyspnea on exertion and Denies wheezing Gastrointestinal Gastrointestinal: Denies abdominal pain, Denies change in bowel habits, Denies diarrhea, Denies nausea and Denies vomiting Musculoskeletal Musculoskeletal: Denies neck pain and Denies numbness Integumentary/Breasts Skin/Breast: Denies pruritus, Denies erythema, Denies rash and Reports wounds Neurologic Neurologic: Denies behavioral changes, Denies confusion, Denies dizziness, Denies frequent falls, Denies loss of vision, Denies numbness and Denies weakness Psychiatric Psychiatric: Reports anxiety, Denies behavioral changes, Denies confusion, Reports depression, Denies homicidal ideation and Reports suicidal ideation Endocrine Endocrine: Denies fatigue, Denies flushing and Denies palpitations Hematologic/Lymphatic Hematologic/Lymphatic: Denies easy bruising Allergic/Immunologic Allergic/Immunologic: Denies urticaria, Denies throat swelling and Denies wheezing Patient History Medical History (Updated 04/05/21 @ 21:56 by Lucas Acosta DO) Anxiety Atypical chest pain Chest wall pain Depression Electrical accident caused by domestic wiring and appliances GERD (gastroesophageal reflux disease) Migraine headache Nausea Surgical History History of arthroscopic knee surgery Status post hysterectomy Status post tonsillectomy and adenoidectomy Social History marital status: Smoking Status: Former smoker alcohol intake: current (ON OCCASION ) substance use type: marijuana Smoking Status: Former smoker alcohol intake frequency: holidays/special occasions only Substance Use Type: marijuana Exam Narrative Exam Narrative: GENERAL: [40] year old patient appears stated age. Well- nourished, well-developed patient, in mild distress. Tearful, referral, good eye contact and insight HEAD: Atraumatic. Normocephalic. EYES: Pupils equal round and reactive. Extraocular motions intact. No scleral icterus. No injection or drainage. ENT: Nose without bleeding, purulent drainage. Throat without erythema, tonsillar hypertrophy or exudate. Airway patent. NECK: Trachea midline. Non tender CARDIOVASCULAR: Regular rate and rhythm without murmurs, gallops, or rubs. RESPIRATORY: Clear to auscultation. Breath sounds equal bilaterally. No wheezes, rales, or rhonchi. GASTROINTESTINAL: Abdomen soft, non-tender, nondistended. EXTREMITIES: 7.5 cm deep laceration on the volar aspect of the left wrist, minimal active bleeding, no vascular injury. A very small, centrally located t endon has been lacerated measuring a few cm a crossed and resulting in no measurable weakness. His is presumably pulmaris. No edema or joint tenderness. BACK: Nontender without deformity or crepitance. No flank tenderness. NEURO: AOx3. SKIN: No rash or erythema of visible areas Initial Vital Signs Initial Vital Signs: Vital Signs Pulse Rate 87 04/05/21 19:40 Respiratory Rate 20 04/05/21 19:40 Blood Pressure 216/107 H 04/05/21 19:40 Pulse Oximetry 99 04/05/21 19:40 Course Orders Ordered: ED Orders 04/05/21 21:11 Complete Blood Count AUTO DIFF Stat Comprehensive Metabolic Panel Stat Ethanol (ETOH) Stat Discontinued Medications Lidocaine/Sodium Bicarbonate (Lido 1%/Sod Bicarb 8.4% (10ml) 10 Ml Syringe) 10 ml INJ NOW ONE Stop: 04/05/21 21:55 Last Admin: 04/05/21 22:10 Dose: 10 ml Documented by: JANESSA Consultations Consultation #1: discussion with magnetic resonance imaging director ortho (Meaghan), given description of injury and exam this is likely palmaris and will require no specific repair. Recommends would closure, ABX, follow up Vital Signs Vital signs: Vital Signs - 8 hr 04/05/21 22:39 Pulse Rate 82 Respiratory Rate 18 Blood Pressure 154/82 H Pulse Oximetry 98 MDM - Psych Lab Data Result diagrams: 04/05/21 21:11 04/05/21 21:11 Labs: Lab Results 04/05/21 04/05/21 04/05/21 Range/Units 21:07 21:07 21:11 WBC 10.9 (4.5-11.0) X10^3/uL RBC 4.84 (4.0-5.2) X10^6/uL Hgb 15.0 (12.0-16.0) g/dL Hct 44.1 (36-46) % MCV 91.1 (80-100) fL MCH 31.0 (26-34) PG MCHC 34.1 (30-36) % RDW 12.9 (11.6-14.8) % Plt Count 280 (150-400) X10^3/uL Neut % (Auto) 78.8 H (50-75) % Lymph % (Auto) 15.1 L (25-40) % Karnes % (Auto) 5.5 (3-14) % Eos % (Auto) 0.2 L (2-4) % Baso % (Auto) 0.4 (0-2) % Neut # (Auto) 8600 H (5742-0245) /uL Lymph # (Auto) 1600 (9721-6253) /uL Karnes # (Auto) 600 (0-900) /uL Eos # (Auto) 0 (0-450) /uL Baso # (Auto) 0 (0-100) /uL Sodium (137-145) mmol/L Potassium (3.4-5.1) mmol/L Chloride (98-107) mmol/L Carbon Dioxide (22-32) mmol/L BUN (7-17) mg/dL Creatinine (0.52-1.04) mg/dL Estimated GFR (>60) mL/min BUN/Creatinine Ratio (6-22) Glucose (70-100) mg/dL Calcium (8.4-10.2) mg/dL Total Bilirubin (0.2-1.3) mg/dL AST (14-36) IU/L ALT (<35) IU/L Alkaline Phosphatase (38-126) U/L Total Protein (6.3-8.2) g/dL Albumin (3.5-5.0) g/dL Globulin (1.7-4.1) g/dL Albumin/Globulin Ratio (1.0-2.8) HCG, Quant Urine RBC None seen (0-5/HPF) Urine WBC None seen (0-5/HPF) Ur Squamous Epith Cells 0-1 /hpf (0-5/HPF) Urine Bacteria Few (2-10) H (None) Ur Culture Indicated? Cult not indicated U Opiates 300ng/mL cut Negative (Negative) Ur Oxycodone Screen Negative (Negative) Urine Methadone Screen Negative (Negative) Ur Barbiturates Screen Negative (Negative) U Tricyclic Antidepress Negative (Negative) Ur Phencyclidine Scrn Negative (Negative) Ur Amphetamines Screen Negative (Negative) U Methamphetamines Scrn Negative (Negative) Ur MDMA Scrn (Ecstasy) Negative (Negative) U Benzodiazepines Scrn Negative (Negative) Urine Cocaine Screen Negative (Negative) U Marijuana (THC) Screen Positive H (Negative) Ethyl Alcohol ( - 10) mg/dL 04/05/21 04/05/21 Range/Units 21:11 21:11 WBC (4.5-11.0) X10^3/uL RBC (4.0-5.2) X10^6/uL Hgb (12.0-16.0) g/dL Hct (36-46) % MCV (80-100) fL MCH (26-34) PG MCHC (30-36) % RDW (11.6-14.8) % Plt Count (150-400) X10^3/uL Neut % (Auto) (50-75) % Lymph % (Auto) (25-40) % Karnes % (Auto) (3-14) % Eos % (Auto) (2-4) % Baso % (Auto) (0-2) % Neut # (Auto) (5305-2072) /uL Lymph # (Auto) (8140-5859) /uL Karnes # (Auto) (0-900) /uL Eos # (Auto) (0-450) /uL Baso # (Auto) (0-100) /uL Sodium 136 L (137-145) mmol/L Potassium 3.9 (3.4-5.1) mmol/L Chloride 106 (98-107) mmol/L Carbon Dioxide 24 (22-32) mmol/L BUN 10 (7-17) mg/dL Creatinine 0.79 (0.52-1.04) mg/dL Estimated GFR > 60.0 (>60) mL/min BUN/Creatinine Ratio 12.7 (6-22) Glucose 140 H (70-100) mg/dL Calcium 9.8 (8.4-10.2) mg/dL Total Bilirubin 0.4 (0.2-1.3) mg/dL AST 28 (14-36) IU/L ALT 26 (<35) IU/L Alkaline Phosphatase 50 (38-126) U/L Total Protein 8.0 (6.3-8.2) g/dL Albumin 4.6 (3.5-5.0) g/dL Globulin 3.4 (1.7-4.1) g/dL Albumin/Globulin Ratio 1.4 (1.0-2.8) HCG, Quant Cancelled Urine RBC (0-5/HPF) Urine WBC (0-5/HPF) Ur Squamous Epith Cells (0-5/HPF) Urine Bacteria (None) Ur Culture Indicated? U Opiates 300ng/mL cut (Negative) Ur Oxycodone Screen (Negative) Urine Methadone Screen (Negative) Ur Barbiturates Screen (Negative) U Tricyclic Antidepress (Negative) Ur Phencyclidine Scrn (Negative) Ur Amphetamines Screen (Negative) U Methamphetamines Scrn (Negative) Ur MDMA Scrn (Ecstasy) (Negative) U Benzodiazepines Scrn (Negative) Urine Cocaine Screen (Negative) U Marijuana (THC) Screen (Negative) Ethyl Alcohol < 10 ( - 10) mg/dL Point of Care Testing Test Results Negative Urine Dip Bedside Urine Glucose Negative Bedside Urine Bilirubin - Negative Bedside Urine Ketone +/- 5 Urine Specific Ethel 1.020 Bedside Urine Occult Blood +/- Bedside Urine pH 6.0 Bedside Urine Protein +/- 15 Bedside Urine Urobilinogen - Negative Bedside Urine Nitrite - Negative Bedside Urine Leukocytes - Negative Esterase MDM Narrative Medical decision making narrative: Patient had a significant lapse in judgment triggered by an argument. She suffered a deep wound as a consequence. She is able to contract for safety and feels significant remorse and improvement in her overall status prior to discharge. She does not want to see our social media manager tomorrow. Her is at the bedside and agrees with her ability to contract for safety feels comfortable taking her. Questions answered to her apparent satisfaction Discharge Plan Departure Patient Disposition: Home Clinical Impression: Anxiety, Intentional self-harm Laceration of left wrist Qualifiers: Encounter type: initial encounter Qualified Code(s): S61.512A - Laceration without foreign body of left wrist, initial encounter Instructions: DI for Suicidal Ideation-Adult Activity Restrictions/Additional Instructions: *You have been diagnosed with [severe anxiety with self-harm and left wrist laceration] *What to do: *Please continue to take your regular medications as directed. [ ] New medication prescriptions sent to your pharmacy: [ ] [ ] New medication written as a paper prescription [ ] No new medications given *Please follow up with your primary care provider in 2-3 days, call for an appointment. Let them know you were seen in the Emergency Department and that we ask that you be seen in follow up. We will electronically transmit a record of today's note if your PCP is in our system Please keep the wound clean and dry to the best of your ability. Please monitor for signs of infection such as redness to the skin or increasing pain. Have the sutures removed by your doctor (or Ortho/Wound Care) in about 7 days. If you are unable to get into your doctor, we would be happy to remove the sutures in that same timeframe. *If you feel that you are entering into mental health crisis you have multiple options 1. Return to the ER immediately 2. Call the Crisis Line at [phone] 3. Send an anonymous text by [place] the [place] to [phone] 4. Navigate your web browser to [employer] to engage in anonymous chat with a mental health worker Prescriptions: New clindamycin HCl 300 mg capsule 300 mg PO TID 7 Days Qty: 21 RF: 0 No Action buspirone 5 mg tablet 5 mg PO BID Qty: 60 RF: 3 diclofenac sodium 75 mg tablet,delayed release (DR/EC) 75 mg PO BID Qty: 30 RF: 0 hyoscyamine sulfate [Levsin] 0.125 mg tablet 0.125 mg PO QID PRN (Reason: dyspepsia) Qty: 30 RF: 2 Prilosec OTC 20 mg tablet,delayed release (DR/EC) 20 mg PO DAILY Qty: 30 RF: 11 triamcinolone acetonide 0.1 % cream See Rx Instructions TOP BID Qty: 30 RF: 0 triamcinolone acetonide [Nasacort] 55 MCG/PUFF aerosol,spray 1 spray Intranasal QDAY RF: 0 olopatadine [Pataday] 2.5 ML drops 0.2 % OPHTH DAILY RF: 0 loperamide 2 mg capsule 2 mg PO Q4H Qty: 10 RF: 0 Referrals: Ernst Palma MD [Primary Care Provider] - Lanre Harding MD [Physician] -
[2021-04-05] MEDS: LIDO 1%/SOD BICARB 8.4% (10ML) 10 ML SYRINGE INJ (22:10)
[2021-04-05 22:39] VITALS: BP 154/82; PULSE 82; RESP 18; O2SAT 98
== END 2021-04-05 22:47 | disposition home or self-care (01) ==
PROVIDERS: Emergency Provider Emergency Medicine; PCP Family Medicine
DX: R45.851 Suicidal ideations (principal); S61.512A Laceration without foreign body of left wrist, initial encounter; X83.8XXA Intentional self-harm by other specified means, initial encounter
CPT/HCPCS: 36415; 80053; 80305; 80320; 81003; 81015; 81025; 85025; 99283

== ENCOUNTER → 2022-03-18 08:25 | Outpatient (CLI) | payer OTHER, SELFPAY ==
[2022-03-18 10:04] LABS: Add Manual Diff / Slide Review NO; Basophils Absolute Auto 100 /uL (0-100); Basophils Percent Auto 0.7 % (0-2); Eosinophils Absolute Auto 200 /uL (0-450); Eosinophils Percent Auto 1.9 % (2-4); Hematocrit 43.4 % (36-46); Hemoglobin 15.2 g/dL (12.0-16.0); Lymphocytes Absolute Auto 2500 /uL (1100-4500); Lymphocytes Percent Auto 29.6 % (25-40); Mean Corpuscular Hemoglobin 31.2 PG (26-34); Mean Corpuscular Volume 89.3 fL (80-100); Monocytes Absolute Auto 600 /uL (0-900); Monocytes Percent Auto 7.5 % (3-14); Neutrophils Absolute Auto 5100 /uL (1500-7000); Neutrophils Percent Auto 60.3 % (50-75); Platelet Count 296 X10^3/uL (150-400); Red Blood Cell Count 4.86 X10^6/uL (4.0-5.2); Red Cell Distribution Width 13.5 % (11.6-14.8); White Blood Cell Count 8.4 X10^3/uL (4.5-11.0)
[2022-03-18 11:00] LABS: Thyroid Stimulating Hormone 1.85 uIU/mL (0.47-4.68)
[2022-03-18 14:04] LABS: Alanine Aminotransferase 22 IU/L (<35); Albumin 4.4 g/dL (3.5-5.0); Albumin Globulin Ratio 1.5 (1.0-2.8); Alkaline Phosphatase 41 U/L (38-126); Aspartate Aminotransferase 27 IU/L (14-36); BUN Creatinine Ratio 12.8 (6-22); Bilirubin Total 0.8 mg/dL (0.2-1.3); Blood Urea Nitrogen 11 mg/dL (7-17); Calcium 9.3 mg/dL (8.4-10.2); Carbon Dioxide 23 mmol/L (22-32); Chloride 106 mmol/L (98-107); Cholesterol 242 mg/dL (140-199); Estimated Glomerular Filt Rate > 60 mL/min (>60); Glucose 100 mg/dL (70-100); HDL Cholesterol 58 mg/dL (40-60); HEMOLYSIS < 15 (0-50); LDL Cholesterol Calculated 166 mg/dL (<100); Potassium 4.8 mmol/L (3.4-5.1); Sodium 139 mmol/L (137-145); Total Protein 7.4 g/dL (6.3-8.2); Triglycerides 92 mg/dL (35-150)
[2022-03-18 14:57] LABS: Hemoglobin A1C% w Est Avg Glu 5.7 % (4.0-6.0)
== END ==
PROVIDERS: PCP Family Medicine; Referring Provider Physician Assistant; Visit Provider Physician Assistant
DX: R61 Generalized hyperhidrosis (principal); R73.09 Other abnormal glucose; Z13.6 Encounter for screening for cardiovascular disorders
CPT/HCPCS: 36415; 80053; 80061; 83036; 84443; 85025

== ENCOUNTER 2022-08-22 21:45 | Emergency (ER) | payer OTHER, SELFPAY ==
[2022-08-22] VITALS (7 sets, daily range): BP systolic 159–186; BP diastolic 86–114; PULSE 64–84; RESP 15–23; O2SAT 95–98; BMI 44.6
--- NOTE | 2022-08-22 21:55 | DI.RAD.S_ITS ---
PROCEDURE: XR CHEST 1V INDICATIONS: chest pain TECHNIQUE: One view of the chest was acquired. COMPARISON: Merged With [facility], CR, XR CHEST 2V, 10/25/2019, 10:12. FINDINGS: Surgical changes and devices: None. Lungs and pleura: Lungs are clear. No pleural effusions or pneumothorax. Mediastinum: Mediastinal contours appear normal. Heart size is normal. Bones and chest wall: No suspicious bony lesions. Overlying soft tissues appear unremarkable. IMPRESSION: 1. No acute cardiopulmonary disease. Dictated by: Chester Rios M.D. on 08/22/2022 at 22:53 Approved by: Chester Rios M.D. on 08/22/2022 at 22:54
[2022-08-22] MEDS: ASPIRIN 81 MG CHEW TAB 324 MG PO (22:05)
[2022-08-22] MEDS: SODIUM CHLORIDE 0.9% 1,000 ML 150 ML IV (22:29)
[2022-08-22 22:36] LABS: Add Manual Diff / Slide Review NO; Basophils Absolute Auto 100 /uL (0-100); Basophils Percent Auto 0.6 % (0-2); Eosinophils Absolute Auto 300 /uL (0-450); Eosinophils Percent Auto 2.5 % (2-4); Hematocrit 40.4 % (36-46); Hemoglobin 13.8 g/dL (12.0-16.0); Lymphocytes Absolute Auto 3500 /uL (1100-4500); Lymphocytes Percent Auto 33.3 % (25-40); Mean Corpuscular Volume 91.1 fL (80-100); Monocytes Absolute Auto 700 /uL (0-900); Monocytes Percent Auto 6.9 % (3-14); Neutrophils Absolute Auto 5900 /uL (1500-7000); Neutrophils Percent Auto 56.7 % (50-75); Platelet Count 302 X10^3/uL (150-400); Red Blood Cell Count 4.44 X10^6/uL (4.0-5.2); Red Cell Distribution Width 13.4 % (11.6-14.8); White Blood Cell Count 10.5 X10^3/uL (4.5-11.0)
[2022-08-22 22:40] LABS: INR 1.1 (0.9-1.3); Prothrombin Time 12.2 SECONDS (10.1-12.7)
[2022-08-22 22:44] LABS: Alanine Aminotransferase 21 IU/L (<35); Albumin 4.1 g/dL (3.5-5.0); Albumin Globulin Ratio 1.3 (1.0-2.8); Alkaline Phosphatase 49 U/L (38-126); Aspartate Aminotransferase 22 IU/L (14-36); BUN Creatinine Ratio 13.5 (6-22); Bilirubin Total 0.4 mg/dL (0.2-1.3); Blood Urea Nitrogen 12 mg/dL (7-17); Calcium 8.6 mg/dL (8.4-10.2); Carbon Dioxide 27 mmol/L (22-32); Chloride 103 mmol/L (98-107); Creatine Kinase 93 U/L (30-135); Estimated Glomerular Filt Rate > 60 mL/min (>60); Globulin 3.1 g/dL (1.7-4.1); Glucose 129 mg/dL (70-100); HEMOLYSIS 19 (0-50); Lipase 262 U/L (23-300); Potassium 3.6 mmol/L (3.4-5.1); Sodium 138 mmol/L (137-145); Total Protein 7.2 g/dL (6.3-8.2)
[2022-08-22 22:56] LABS: Troponin I < 0.012 ng/mL (0.01-0.034)
[2022-08-22 23:14] LABS: NT-proBNP (BNP-Adult 18+) 106 pg/mL (<125)
[2022-08-22 23:25] LABS: Erythrocyte Sedimentation Rate 7 MM/HR (0-20)
[2022-08-22 23:33] LABS: D Dimer 400 ng/ml (<500)
--- NOTE | 2022-08-22 23:35 | ED.CHESTPAIN ---
HPI - Chest Pain General Chief Complaint: Chest Pain Stated Complaint: Chest pains Time Seen by Provider: 08/22/22 21:53 Source: patient Mode of arrival: Ambulatory History of Present Illness HPI narrative: 41F former smoker with history of anxiety and hyperlipidemia presents with family in the chief complaint of a relatively sudden onset left-sided chest pain that seemed to radiate into her left shoulder. She states that it started at about 7:00 p.m. tonight. She denies any obvious provocation or palliation but states it seemed to be coming and going over the course of the night and when it went into her shoulder she became concerned and presented to us. She denies associated symptoms such as dizziness, weakness or lightheadedness. She denies any unexplained diaphoresis nor nausea or vomiting. She denies any increased fatigue. She denies exertional symptoms or any noted exercise intolerance over the past few days or weeks. She denies recent travel, trauma or injury, history of blood clot or lower extremity pain, swelling, redness or warmth. Related Data Home Medications Medication Instructions Recorded Confirmed olopatadine 0.2 % eye drops 0.2 % OPHTH DAILY 10/25/19 03/20/22 (Pataday) Previous Rx's Medication Instructions Recorded hydroxyzine HCl 25 mg tablet 25 mg PO TID PRN anxity #30 tabs 04/08/21 bupropion HCl 75 mg tablet 75 mg PO DAILY #90 tabs 03/20/22 escitalopram oxalate 20 mg tablet 20 mg PO DAILY #90 tabs 03/20/22 amlodipine 5 mg tablet 5 mg PO DAILY #30 tabs 08/23/22 Allergies Allergy/AdvReac Type Severity Reaction Status Date / Time Penicillins [PENICILLINS] Allergy Severe anaphylaxis Verified 03/20/22 09:51 propoxyphene Allergy Intermediate SWELLING / Verified 03/20/22 09:51 [From LEONID-N] RASH adhesive [ADHESIVE] Allergy Mild paper tape Verified 03/20/22 09:51 codeine [CODEINE] Allergy Mild rash and Verified 03/20/22 09:51 swelling latex [LATEX] Allergy Mild rash Verified 03/20/22 09:51 Review of Systems Review of Systems Narrative: GENERAL: Denies chills, fatigue, malaise, fever, sweats. HEENT: Denies sinus pain, ear pain, sore throat, difficulty swallowing, dizziness. RESPIRATORY: Denies dyspnea, cough, wheezing, hemoptysis, sputum. CARDIOVASCULAR: See HPI GASTROINTESTINAL: Denies nausea, vomiting, abdominal pain, diarrhea, constipation, melena. : Denies dysuria, frequency, incontinence, hematuria, urinary retention. MUSCULOSKELETAL: denies weakness, joint pain, or bony pain SKIN: Denies rash, skin lesions, or other NEUROLOGIC: Denies weakness, headache, numbness, change in speech, confusion, seizures, incoordination. PSYCHIATRIC: No concerning psychosocial issues. 12 point review of systems is negative except for those stated above Patient History Medical History Anxiety Atypical chest pain Chest wall pain Depression Electrical accident caused by domestic wiring and appliances GERD (gastroesophageal reflux disease) Migraine headache Nausea Superficial thrombophlebitis Surgical History History of arthroscopic knee surgery Status post hysterectomy Status post tonsillectomy and adenoidectomy Social History marital status: Smoking Status: Former smoker alcohol intake: current (ON OCCASION ) substance use type: marijuana Smoking Status: Former smoker alcohol intake frequency: holidays/special occasions only Substance Use Type: marijuana Exam Narrative Exam Narrative: GENERAL: [41] year old patient appears stated age. Well-developed patient, in mild distress. HEAD: Atraumatic. Normocephalic. EYES: Pupils equal round and reactive. Extraocular motions intact. No scleral icterus. No injection or drainage. ENT: Nose without bleeding, purulent drainage. Throat without erythema, tonsillar hypertrophy or exudate. Airway patent. NECK: Trachea midline. Non tender CARDIOVASCULAR: Regular rate and rhythm without murmurs, gallops, or rubs. RESPIRATORY: Clear to auscultation. Breath sounds equal bilaterally. No wheezes, rales, or rhonchi. GASTROINTESTINAL: Abdomen soft, non-tender, nondistended. EXTREMITIES: No edema or joint tenderness. BACK: Nontender without deformity or crepitance. No flank tenderness. NEURO: AOx3. SKIN: No rash or erythema of visible areas Initial Vital Signs Initial Vital Signs: Vital Signs Pulse Rate 84 08/22/22 21:53 Respiratory Rate 18 08/22/22 21:53 Blood Pressure 186/114 H 08/22/22 21:53 Pulse Oximetry 97 08/22/22 21:53 Oxygen Delivery Method 08/22/22 21:53 Scores HEART Score Heart Score history: Slightly Suspicious Heart Score EKG: Normal Heart Score Age: < 45 years old Heart Score risk factors: 1-2 risk factors Heart Score troponin: < or = to normal limit Heart Score Total: 1 Course Orders Ordered: ED Orders 08/22/22 21:55 XR chest 1V Stat EKG-12 Lead Stat 08/22/22 22:20 CRP [C-Reactive Protein Quant] Stat Complete Blood Count AUTO DIFF Stat Comprehensive Metabolic Panel Stat D Dimer Stat ESR [Erythrocyte Sedimentation Rate] Stat Lipase Stat NT-proBNP (BNP-Adult 18+) Stat Prothrombin Time INR Stat Troponin & CK Cardiac Panel Stat 08/23/22 01:22 Trop I [Troponin I] Stat Discontinued Medications Aspirin (Aspirin 81 Mg Chew Tab) 324 mg PO NOW ONE Stop: 08/22/22 21:56 Last Admin: 08/22/22 22:05 Dose: 324 mg Documented By: NOEMI Sodium Chloride (Normal Saline 0.9%) 1,000 mls @ 150 mls/hr IV CONT NITIN Last Infusion: 08/23/22 02:21 Dose: 0 mls/hr Documented By: Admin: 08/22/22 22:29 Dose: 150 mls/hr Documented By: NOEMI Nitroglycerin (Nitroglycerin 0.4 Mg Sl Tab) 0.4 mg SL [id number] PRN PRN Reason: Chest Pain Reevaluation(s) Reevaluation #1: Patient completely symptom-free soon after check in and prior to administration of nitro. She had received the aspirin however but symptoms seemed to improve when her initial elevated blood pressure dropped to a more reasonable level Vital Signs Vital signs: Vital Signs - 8 hr 08/22/22 21:53 08/22/22 21:53 08/22/22 22:00 Pulse Rate 84 84 78 Respiratory Rate 18 15 Blood Pressure 186/114 H Pulse Oximetry 97 98 97 Oxygen Delivery Method Room Air Room Air Room Air 08/22/22 22:02 08/22/22 22:02 08/22/22 22:30 Pulse Rate 80 72 Respiratory Rate 21 Blood Pressure 171/97 H Pulse Oximetry 97 96 Oxygen Delivery Method Room Air Room Air 08/22/22 22:31 08/22/22 22:31 08/22/22 23:00 Pulse Rate 73 Respiratory Rate 23 Blood Pressure 162/86 H 164/102 H Pulse Oximetry 95 Oxygen Delivery Method Room Air 08/22/22 23:00 08/22/22 23:30 08/22/22 23:30 Pulse Rate 68 64 Respiratory Rate 21 21 Blood Pressure 159/106 H Pulse Oximetry 95 95 Oxygen Delivery Method Room Air 08/23/22 00:00 08/23/22 00:01 08/23/22 00:01 Pulse Rate 66 62 Respiratory Rate 21 21 Blood Pressure 163/91 H Pulse Oximetry 96 96 Oxygen Delivery Method 08/23/22 00:30 08/23/22 00:30 08/23/22 01:00 Pulse Rate 65 63 Respiratory Rate 20 21 Blood Pressure 185/105 H Pulse Oximetry 95 95 Oxygen Delivery Method 08/23/22 01:30 08/23/22 02:00 Pulse Rate 63 65 Respiratory Rate 22 27 H Blood Pressure Pulse Oximetry 95 96 Oxygen Delivery Method MDM - Chest Pain Lab Data Result diagrams: 08/22/22 22:20 08/22/22 22:20 Labs: Lab Results 08/22/22 08/22/22 08/22/22 Range/Units 22:20 22:20 22:20 WBC 10.5 (4.5-11.0) X10^3/uL RBC 4.44 (4.0-5.2) X10^6/uL Hgb 13.8 (12.0-16.0) g/dL Hct 40.4 (36-46) % MCV 91.1 (80-100) fL MCH 31.0 (26-34) PG MCHC 34.0 (30-36) % RDW 13.4 (11.6-14.8) % Plt Count 302 (150-400) X10^3/uL Neut % (Auto) 56.7 (50-75) % Lymph % (Auto) 33.3 (25-40) % [place] % (Auto) 6.9 (3-14) % Eos % (Auto) 2.5 (2-4) % Baso % (Auto) 0.6 (0-2) % Neut # (Auto) 5900 (5719-1239) /uL Lymph # (Auto) 3500 (9289-1122) /uL [place] # (Auto) 700 (0-900) /uL Eos # (Auto) 300 (0-450) /uL Baso # (Auto) 100 (0-100) /uL ESR (0-20) MM/HR PT 12.2 (10.1-12.7) SECONDS INR 1.1 (0.9-1.3) D-Dimer (<500) ng/ml Sodium 138 (137-145) mmol/L Potassium 3.6 (3.4-5.1) mmol/L Chloride 103 (98-107) mmol/L Carbon Dioxide 27 (22-32) mmol/L BUN 12 (7-17) mg/dL Creatinine 0.89 (0.52-1.04) mg/dL Estimated GFR > 60 (>60) mL/min BUN/Creatinine Ratio 13.5 (6-22) Glucose 129 H (70-100) mg/dL Calcium 8.6 (8.4-10.2) mg/dL Total Bilirubin 0.4 (0.2-1.3) mg/dL AST 22 (14-36) IU/L ALT 21 (<35) IU/L Alkaline Phosphatase 49 (38-126) U/L Total Creatine Kinase 93 (30-135) U/L CK-MB (CK-2) TNP CK-MB (CK-2) Rel Index TNP Troponin I < 0.012 (0.01-0.034) ng/mL C-Reactive Protein (<1.0) mg/dL NT-Pro-B Natriuret Pep (<125) pg/mL Total Protein 7.2 (6.3-8.2) g/dL Albumin 4.1 (3.5-5.0) g/dL Globulin 3.1 (1.7-4.1) g/dL Albumin/Globulin Ratio 1.3 (1.0-2.8) Lipase 262 (23-300) U/L 08/22/22 08/22/22 08/22/22 Range/Units 22:20 22:20 22:20 WBC (4.5-11.0) X10^3/uL RBC (4.0-5.2) X10^6/uL Hgb (12.0-16.0) g/dL Hct (36-46) % MCV (80-100) fL MCH (26-34) PG MCHC (30-36) % RDW (11.6-14.8) % Plt Count (150-400) X10^3/uL Neut % (Auto) (50-75) % Lymph % (Auto) (25-40) % [place] % (Auto) (3-14) % Eos % (Auto) (2-4) % Baso % (Auto) (0-2) % Neut # (Auto) (7112-0643) /uL Lymph # (Auto) (3921-1319) /uL [place] # (Auto) (0-900) /uL Eos # (Auto) (0-450) /uL Baso # (Auto) (0-100) /uL ESR 7 (0-20) MM/HR PT (10.1-12.7) SECONDS INR (0.9-1.3) D-Dimer 400 (<500) ng/ml Sodium (137-145) mmol/L Potassium (3.4-5.1) mmol/L Chloride (98-107) mmol/L Carbon Dioxide (22-32) mmol/L BUN (7-17) mg/dL Creatinine (0.52-1.04) mg/dL Estimated GFR (>60) mL/min BUN/Creatinine Ratio (6-22) Glucose (70-100) mg/dL Calcium (8.4-10.2) mg/dL Total Bilirubin (0.2-1.3) mg/dL AST (14-36) IU/L ALT (<35) IU/L Alkaline Phosphatase (38-126) U/L Total Creatine Kinase (30-135) U/L CK-MB (CK-2) CK-MB (CK-2) Rel Index Troponin I (0.01-0.034) ng/mL C-Reactive Protein (<1.0) mg/dL NT-Pro-B Natriuret Pep 106 (<125) pg/mL Total Protein (6.3-8.2) g/dL Albumin (3.5-5.0) g/dL Globulin (1.7-4.1) g/dL Albumin/Globulin Ratio (1.0-2.8) Lipase (23-300) U/L 08/22/22 08/23/22 Range/Units 22:20 01:22 WBC (4.5-11.0) X10^3/uL RBC (4.0-5.2) X10^6/uL Hgb (12.0-16.0) g/dL Hct (36-46) % MCV (80-100) fL MCH (26-34) PG MCHC (30-36) % RDW (11.6-14.8) % Plt Count (150-400) X10^3/uL Neut % (Auto) (50-75) % Lymph % (Auto) (25-40) % [place] % (Auto) (3-14) % Eos % (Auto) (2-4) % Baso % (Auto) (0-2) % Neut # (Auto) (3014-5793) /uL Lymph # (Auto) (6334-0620) /uL [place] # (Auto) (0-900) /uL Eos # (Auto) (0-450) /uL Baso # (Auto) (0-100) /uL ESR (0-20) MM/HR PT (10.1-12.7) SECONDS INR (0.9-1.3) D-Dimer (<500) ng/ml Sodium (137-145) mmol/L Potassium (3.4-5.1) mmol/L Chloride (98-107) mmol/L Carbon Dioxide (22-32) mmol/L BUN (7-17) mg/dL Creatinine (0.52-1.04) mg/dL Estimated GFR (>60) mL/min BUN/Creatinine Ratio (6-22) Glucose (70-100) mg/dL Calcium (8.4-10.2) mg/dL Total Bilirubin (0.2-1.3) mg/dL AST (14-36) IU/L ALT (<35) IU/L Alkaline Phosphatase (38-126) U/L Total Creatine Kinase (30-135) U/L CK-MB (CK-2) CK-MB (CK-2) Rel Index Troponin I < 0.012 (0.01-0.034) ng/mL C-Reactive Protein 1.0 (<1.0) mg/dL NT-Pro-B Natriuret Pep (<125) pg/mL Total Protein (6.3-8.2) g/dL Albumin (3.5-5.0) g/dL Globulin (1.7-4.1) g/dL Albumin/Globulin Ratio (1.0-2.8) Lipase (23-300) U/L MDM Narrative Medical decision making narrative: Multiple causes of chest pain considered including FL, PE, pneumothorax, pneumonia, aortic dissection, and pleurisy. Patient reports no radiation, no diaphoresis, no provocation with exertion, and no vomiting Patient's symptoms improved over duration of stay with above-stated therapies. Findings and discharge diagnosis discussed with patient/family followed by verbalization of understanding Return precautions discussed with patient/family whom verbalize understanding. Discharge Plan Departure Patient Disposition: Home Clinical Impression: Atypical chest pain Instructions: DI for Atypical Chest Pain Activity Restrictions/Additional Instructions: *You have been diagnosed with [atypical chest pain. As we discussed your history and physical exam are reassuring as are labs, x-ray and EKGs. There is no indication of heart attack, blood clot or other obvious or life-threatening cause of your symptoms. *What to do: *Please continue to take your regular medications as directed. [x ] New medication prescriptions sent to your pharmacy: [[facility] ] [ ] New medication written as a paper prescription [ ] No new medications given *Please follow up with your primary care provider in 2-3 days, call for an appointment. Let them know you were seen in the Emergency Department and that we ask that you be seen in follow up. We will electronically transmit a record of today's note if your PCP is in our system *Return to Emergency Department if you should have any new, worsening or concerning symptoms Prescriptions: New amlodipine 5 mg tablet 5 mg PO DAILY Qty: 30 0RF No Action hydroxyzine HCl 25 mg tablet 25 mg PO TID PRN (Reason: anxity) Qty: 30 3RF bupropion HCl 75 mg tablet 75 mg PO DAILY Qty: 90 1RF Rx Instructions: Take one tablet daily in the morning escitalopram oxalate 20 mg tablet 20 mg PO DAILY Qty: 90 3RF olopatadine [Pataday] 2.5 ML drops 0.2 % OPHTH DAILY Label Comments: patient states seasonal Referrals: Ernst Palma MD [Primary Care Provider] - Visit Report Forms: Patient Portal/API
[2022-08-23] VITALS: PULSE 66; RESP 21; O2SAT 96
[2022-08-23 00:01] VITALS: BP 163/91; PULSE 62; RESP 21; O2SAT 96
[2022-08-23 00:30] VITALS: BP 185/105; PULSE 65; RESP 20; O2SAT 95
[2022-08-23 01:00] VITALS: PULSE 63; RESP 21; O2SAT 95
[2022-08-23 01:30] VITALS: PULSE 63; RESP 22; O2SAT 95
[2022-08-23 01:59] LABS: Troponin I < 0.012 ng/mL (0.01-0.034)
[2022-08-23 02:00] VITALS: PULSE 65; RESP 27; O2SAT 96
== END 2022-08-23 02:25 | disposition home or self-care (01) ==
PROVIDERS: Emergency Provider Emergency Medicine; PCP Family Medicine
DX: R07.89 Other chest pain (principal)
CPT/HCPCS: 36415; 71045; 80053; 82550; 83690; 83880; 84484; 85025; 85379; 85610; 85651; 86140; 93005; 99284

== ENCOUNTER → 2023-06-29 15:16 | Outpatient (CLI) | payer OTHER, SELFPAY ==
[2023-06-29 17:05] LABS: LDL Cholesterol Direct 109 mg/dL (<100)
[2023-06-29 17:25] LABS: TSH w/ Reflex to FT4 1.23 uIU/mL (0.47-4.68)
== END ==
PROVIDERS: PCP Family Medicine; Referring Provider Family Medicine; Visit Provider Family Medicine
DX: I10 Essential (primary) hypertension (principal)
CPT/HCPCS: 36415; 83721; 84443

== ENCOUNTER → 2023-07-22 12:50 | Outpatient (CLI) | payer OTHER, SELFPAY | PROVIDERS: PCP Family Medicine; Referring Provider Family Medicine; Visit Provider Family Medicine | DX: R00.2 Palpitations (principal) | CPT/HCPCS: 93242 ==

== ENCOUNTER 2023-12-05 20:08 | Emergency (ER) | payer OTHER, SELFPAY ==
[2023-12-05 20:16] VITALS: BP 140/89; PULSE 87; RESP 16; TEMP 37; O2SAT 95; BMI 46.9
--- NOTE | 2023-12-05 20:16 | PC.NURSE ---
pt states she feels like the swelling is pushing on her ear because when she moves real fast she becomes dizzy, left upper jaw swelling no pain
[2023-12-05 20:19] VITALS: PULSE 72; O2SAT 94
[2023-12-05 20:30] VITALS: PULSE 73; O2SAT 96
--- NOTE | 2023-12-05 20:41 | ED_ITS ---
HPI - Dental/Oral General Chief complaint: Dental/Oral Stated complaint: Jaw pain, Left side swelling Time Seen by Provider: 12/05/23 20:30 Source: patient Mode of arrival: Ambulatory Limitations: no limitations History of Present Illness HPI Narrative: 43-year-old female, former smoker, history of anxiety and hypertension. Patient states the week before Pat she had dental work done tooth had broken and a half, she states she had an injection for numbing and had a the tooth cleaned off and then had a cavity filling. She states she was doing fine until then started developed some pain yesterday and then developed swelling and has swelling over the teeth on the left posterior and has a sensation of some swelling up towards the ear and cheek. Patient states no pain in her ear. No difficulty with swallowing incontinence no swelling her tongue or oropharynx. She states the pain has resolved. No fevers or chills. She has not had similar issues in the past. She has an allergy to penicillin, she gets anaphylaxis she does not know if she has had amoxicillin in the past. Former smoker, occasional alcohol, marijuana but no other recreational drugs. Related Data Previous Rx's Medication Instructions Recorded escitalopram oxalate 20 mg tablet 20 mg PO DAILY #90 tabs 10/23/22 amlodipine 5 mg tablet See Rx Instructions .Route 03/09/23 .COMPLEX #90 tabs amlodipine 5 mg-benazepril 20 mg 1 cap PO DAILY #90 caps 06/29/23 capsule lorazepam 0.5 mg tablet 0.5 mg PO ONCE PRN anxiety #2 tabs 11/02/23 clindamycin HCl 300 mg capsule 300 mg PO QID #40 caps 12/05/23 Allergies Allergy/AdvReac Type Severity Reaction Status Date / Time Penicillins [PENICILLINS] Allergy Severe anaphylaxis Verified 06/29/23 14:57 propoxyphene Allergy Intermediate SWELLING / Verified 06/29/23 14:57 [From DARRICHAT-N] RASH adhesive [ADHESIVE] Allergy Mild paper tape Verified 06/29/23 14:57 codeine [CODEINE] Allergy Mild rash and Verified 06/29/23 14:57 swelling latex [LATEX] Allergy Mild rash Verified 06/29/23 14:57 Review of Systems Review of Systems ROS Unobtainable: All systems reviewed & are unremarkable except as noted in HPI and below Patient History Medical History Atypical chest pain GERD (gastroesophageal reflux disease) Nausea Superficial thrombophlebitis Depression Anxiety Migraine headache Chest wall pain Electrical accident caused by domestic wiring and appliances Surgical History History of arthroscopic knee surgery Status post tonsillectomy and adenoidectomy Status post hysterectomy Social History marital status: Smoking Status: Former smoker alcohol intake: current (ON OCCASION ) substance use type: marijuana Smoking Status: Former smoker alcohol intake frequency: 0-2 drinks per day Substance Use Type: marijuana Exam Narrative Exam Narrative: GEN: well nourished, well appearing female, alert and oriented x 3, patient appears to be in mild distress. HEENT: Atraumatic, pupils are equal round reactive to light, extraocular movements are intact, nares are clear, TMs are clear with no fluid, there is no conjunctival pallor. Throat is clear without any exudates, erythema, tonsillar enlargement or uvular deviation, patient does have mild swelling along the posterior teeth on both sides, nontender, no fluctuance extends towards the cheek slightly. No obvious facial swelling externally. Normal speech. No other airway involvement appreciated. HEART: Regular rate and rhythm without murmur, clicks, rubs. No carotid bruits, pulses are equal in upper and lower extremities LUNGS:Lungs clear to auscultation, no wheezes, rales, crackles, chest moves symmetrically ABD:bowel sounds normal, soft, non-tender, no guarding, rebound, rigidity, no masses noted, no hepatosplenomegaly MSCL: Non-tender, no muscle atrophy, muscles strength 5/5 upper and lower extremities, full range of motion, normal gait NEURO:CN 2-12 intact, sensation normal SKIN: No rash, erythema or other skin changes Initial Vital Signs Initial Vital Signs: Vital Signs Temperature 98.6 F 12/05/23 20:16 Pulse Rate 87 12/05/23 20:16 Respiratory Rate 16 12/05/23 20:16 Blood Pressure 140/89 12/05/23 20:16 Pulse Oximetry 95 12/05/23 20:16 Oxygen Delivery Method Room Air 12/05/23 20:16 Course Orders Ordered: Discontinued Medications Clindamycin HCl (Clindamycin 150 Mg Capsule) 300 mg PO NOW ONE Stop: 12/05/23 21:25 Last Admin: 12/05/23 21:27 Dose: 300 mg Documented By: JOÃO Vital Signs Vital signs: Vital Signs - 8 hr 12/05/23 20:16 12/05/23 20:19 12/05/23 20:30 Temperature 98.6 F Pulse Rate 87 72 73 Respiratory Rate 16 Blood Pressure 140/89 Pulse Oximetry 95 94 96 Oxygen Delivery Method Room Air 12/05/23 21:00 12/05/23 21:28 12/05/23 21:30 Temperature Pulse Rate 71 76 Respiratory Rate Blood Pressure 166/107 H Pulse Oximetry 97 96 Oxygen Delivery Method MDM - Dental/Oral MDM Narrative Medical decision making narrative: 43-year-old female who does have appreciable swelling over the medial and lateral sides of her teeth on the left upper for the posterior 3-4 teeth. No obvious external involvement. Patient does not have any other involvement of oropharynx. She is tolerating secretions without issue and no other red flag symptoms but we will start on oral antibiotic patient did have dental procedure that before [place], proximally 3 weeks ago. She states she had pain yesterday pain has improved but now has swelling that has been persistent. Discharge Plan Departure Patient Disposition: Home Clinical Impression: Dental infection Activity Restrictions/Additional Instructions: Please follow up with your dentist for recheck. Take antibiotics until completed. Prescription has been printed. You can take Tylenol up to a 1000 mg every 6 hours and/or ibuprofen up to 600 mg every 6 hours if you develop pain. Please return for fevers, rapidly worsening swelling, swelling involving the tongue, airway, changes to voice, difficulty swallowing secretions, obvious swelling of the face or other new or concerning changes. Prescriptions: New clindamycin HCl 300 mg capsule 300 mg PO QID Qty: 40 0RF No Action amlodipine-benazepril 5-20 mg capsule 1 cap PO DAILY Qty: 90 3RF escitalopram oxalate 20 mg tablet 20 mg PO DAILY Qty: 90 3RF amlodipine 5 mg tablet See Rx Instructions .ROUTE .COMPLEX Qty: 90 3RF Dose Instruction: TAKE 1 TABLET BY MOUTH ONCE DAILY Rx Instructions: TAKE 1 TABLET BY MOUTH ONCE DAILY lorazepam 0.5 mg tablet 0.5 mg PO ONCE PRN (Reason: anxiety) Qty: 2 0RF Rx Instructions: to use before procedure Referrals: Ernst Palma MD [Primary Care Provider] - Stand Alone Forms: Patient Portal/API
[2023-12-05 21:00] VITALS: PULSE 71; O2SAT 97
--- NOTE | 2023-12-05 21:19 | PC.NURSE ---
Dr Gupta in to evaluate pt
[2023-12-05] MEDS: CLINDAMYCIN 150 MG CAPSULE 300 MG PO (21:27)
[2023-12-05 21:28] VITALS: PULSE 76; O2SAT 96
[2023-12-05 21:30] VITALS: BP 166/107
== END 2023-12-05 21:37 | disposition home or self-care (01) ==
PROVIDERS: Emergency Provider Emergency Medicine; PCP Family Medicine
DX: K04.7 Periapical abscess without sinus (principal)
CPT/HCPCS: 99283

== ENCOUNTER → 2023-12-10 13:53 | Outpatient (CLI) | payer OTHER, SELFPAY ==
--- NOTE | 2024-10-04 14:18 | PC.NURSE ---
Noy placed 12/10/23: This RN LVM about zio possibly lost and for pt to call back about it.
== END ==
LOC: CAR 13:53
PROVIDERS: PCP Family Medicine; Referring Provider Family Medicine; Visit Provider Family Medicine
DX: R00.2 Palpitations (principal); R55 Syncope and collapse; I49.9 Cardiac arrhythmia, unspecified; I48.91 Unspecified atrial fibrillation; I48.92 Unspecified atrial flutter
CPT/HCPCS: 93242

== ENCOUNTER 2024-07-10 09:06 | Emergency (ER) | payer OTHER, SELFPAY ==
[2024-07-10 09:12] VITALS: BP 137/83; PULSE 65; RESP 16; TEMP 36.4; O2SAT 97; BMI 47.2
--- NOTE | 2024-07-10 11:06 | ED_ITS ---
HPI - Extremity Problem <Rowdy Correia PA-C - Last Filed: 07/10/24 11:26> General Chief complaint: Extremity Problem,Nontraumatic Stated complaint: per pt thinks she had vein burst/back r leg Time Seen by Provider: 07/10/24 11:06 History of Present Illness HPI Narrative: This is a 43-year-old female presents emergency department due to some pain and bruising to the lateral right thigh. She states that she was a varicose vein there as well. She states that she has been walking slightly more than usual during trip [place] but does not recall any twists or falls to injury of the right knee. She states that a couple of days ago she began to feel this pain and n oticed some bruising to the lateral aspect of the thigh. It is wondering if a varicose vein may have ?popped?. Denies any chest pain, shortness of breath, fevers, or any other concerning signs and symptoms. Related Data Previous Rx's Medication Instructions Recorded lorazepam 0.5 mg tablet 0.5 mg PO ONCE PRN anxiety #2 tabs 11/02/23 clindamycin HCl 300 mg capsule 300 mg PO QID #40 caps 12/05/23 amlodipine 5 mg-benazepril 20 mg 1 cap PO DAILY #90 caps 12/07/23 capsule bupropion HCl 75 mg tablet 75 mg PO DAILY #90 tabs 12/07/23 escitalopram oxalate 20 mg tablet 20 mg PO DAILY #90 tabs 12/07/23 Allergies Allergy/AdvReac Type Severity Reaction Status Date / Time Penicillins [PENICILLINS] Allergy Severe anaphylaxis Verified 12/07/23 11:04 propoxyphene Allergy Intermediate SWELLING / Verified 12/07/23 11:04 [From RAMAN] RASH adhesive [ADHESIVE] Allergy Mild paper tape Verified 12/07/23 11:04 codeine [CODEINE] Allergy Mild rash and Verified 12/07/23 11:04 swelling latex [LATEX] Allergy Mild rash Verified 12/07/23 11:04 Review of Systems <Rowdy Correia PA-C - Last Filed: 07/10/24 11:26> Review of Systems Narrative: GENERAL: Denies chills, fatigue, malaise, fever, sweats. HEENT: Denies sinus pain, ear pain, sore throat, difficulty swallowing, dizziness. RESPIRATORY: Denies dyspnea, cough, wheezing, hemoptysis, sputum. CARDIOVASCULAR: Denies chest pain, palpitations, orthopnea, edema, GASTROINTESTINAL: Denies nausea, vomiting, abdominal pain, diarrhea, constipation, melena. : Denies dysuria, frequency, incontinence, hematuria, urinary retention. MUSCULOSKELETAL: denies weakness, joint pain, or bony pain SKIN: Right leg bruise NEUROLOGIC: Denies weakness, headache, numbness, change in speech, confusion, seizures, incoordination. PSYCHIATRIC: No concerning psychosocial issues. 12 point review of systems is negative except for those stated above Patient History <Rowdy Correia PA-C - Last Filed: 07/10/24 11:26> Medical History Atypical chest pain GERD (gastroesophageal reflux disease) Nausea Superficial thrombophlebitis Depression Anxiety Migraine headache Chest wall pain Electrical accident caused by domestic wiring and appliances Surgical History History of arthroscopic knee surgery Status post tonsillectomy and adenoidectomy Status post hysterectomy Social History marital status: Smoking Status: Former smoker alcohol intake: current (ON OCCASION ) substance use type: marijuana Smoking Status: Former smoker alcohol intake frequency: 0-2 drinks per day Substance Use Type: marijuana Exam <Rowdy Correia PA-C - Last Filed: 07/10/24 11:26> Narrative Exam Narrative: GENERAL: Well-developed patient, in mild distress. HEAD: Atraumatic. Normocephalic. EYES: Pupils equal round and reactive. Extraocular motions intact. No scleral icterus. No injection or drainage. ENT: Nose without bleeding, purulent drainage. Throat without erythema, tonsillar hypertrophy or exudate. Airway patent. NECK: Trachea midline. Non tender EXTREMITIES: No significant tenderness to palpation to the bony parts of the right knee, no firmness to the area of ecchymosis to the right lateral thigh. There are a few varicose vein surrounding the area. No significant swelling or erythema. NEURO: AOx3. SKIN: No rash or erythema of visible areas Initial Vital Signs Initial Vital Signs: Vital Signs Temperature 97.6 F 07/10/24 09:12 Pulse Rate 65 07/10/24 09:12 Respiratory Rate 16 07/10/24 09:12 Blood Pressure 137/83 07/10/24 09:12 Pulse Oximetry 97 07/10/24 09:12 Oxygen Delivery Method Room Air 07/10/24 09:12 <Nadja Sequeira MD - Last Filed: 07/10/24 18:31> Initial Vital Signs Initial Vital Signs: Vital Signs Temperature 97.6 F 07/10/24 09:12 Pulse Rate 65 07/10/24 09:12 Respiratory Rate 16 07/10/24 09:12 Blood Pressure 137/83 07/10/24 09:12 Pulse Oximetry 97 07/10/24 09:12 Oxygen Delivery Method Room Air 07/10/24 09:12 Course <Rowdy Correia PA-C - Last Filed: 07/10/24 11:26> Vital Signs Vital signs: Vital Signs - 8 hr 07/10/24 11:15 Pulse Rate 61 Respiratory Rate 18 Blood Pressure 136/84 Pulse Oximetry 99 Oxygen Delivery Method Room Air <Nadja Sequeira MD - Last Filed: 07/10/24 18:31> Vital Signs Vital signs: Vital Signs - 8 hr 07/10/24 11:15 Pulse Rate 61 Respiratory Rate 18 Blood Pressure 136/84 Pulse Oximetry 99 Oxygen Delivery Method Room Air MDM - Extremity (Nontraumatic) <Rowdy Correia PA-C - Last Filed: 07/10/24 11:26> MDM Narrative Medical decision making narrative: ED course: This is a 43-year-old female presents to the emergency department due to suspected popped varicose vein. There was no hematoma. There was no tenderness to palpation to the bony areas that would need an x-ray. Her knee was stable on exam and very low concern for any kind of ligamentous injury. There was no swelling of the right lower extremity and patient was has been fairly active and I have low concern for any kind of DVT. Recommended supportive care. CC: Right thigh bruising Complicating co-morbidities: History of hypertension, superficial thrombophlebitis Data collected from: Previous notes Medical records reviewed: Patient was last seen about 7 months ago due to a dental infection. Former smoker, history of anxiety and hypertension. History of superficial thrombophlebitis. History of arthroscopic knee surgery. On right side Differential considered, but not limited to: DVT, hematoma, fracture, ligament injury Exam documented above, pertinent findings include: No joint laxity on exam. There was no pain with palpation to the right lower extremity, 1 area of bruising noted, no significant edema. Lab Test results independently reviewed as above. Pertinent findings: None obtained Imaging studies independently reviewed: None obtained Scores Used: None MIPS Elements: None Consultations: None Treatments: None Re-evaluations: None Discussion: Discussed plan with the patient was comfortable with the plan Diagnosis: Varicose vein abnormality Disposition: see below, along with detailed discharge instructions that have been reviewed with patient as well as indications for ED re-evaluation and additional outpatient follow up Discharge Plan Departure Patient Disposition: Home Clinical Impression: Varicose vein of leg Activity Restrictions/Additional Instructions: Thank you for coming to the [facility] Emergency Department today. As we discussed I suspect you may have had an injury to the varicose vein of your right lower extremity. Recommend elevation, warm compresses, and Tylenol as needed for any pain or discomfort. I also recommend you speak with the primary care doctor about a referral to a vascular specialist for treatment of your chronic varicose veins. Please return to the emergency department if you develop any significant new or worsening pain, chest pain, shortness of breath, or any other concerning signs or symptoms. I hope you feel better soon. Please follow up with your primary care provider within a week if your symptoms continue. If you do not have a primary care provider please contact the [facility] Resource line at [phone]. They will ask some questions about your medical history and help you get set up with a provider in the community. Prescriptions: No Action lorazepam 0.5 mg tablet 0.5 mg PO ONCE PRN (Reason: anxiety) Qty: 2 0RF Rx Instructions: to use before procedure escitalopram oxalate 20 mg tablet 20 mg PO DAILY Qty: 90 3RF amlodipine-benazepril 5-20 mg capsule 1 cap PO DAILY Qty: 90 3RF bupropion HCl 75 mg tablet 75 mg PO DAILY Qty: 90 3RF clindamycin HCl 300 mg capsule 300 mg PO QID Qty: 40 0RF Referrals: Ernst Palma MD [Primary Care Provider] - Stand Alone Forms: Patient Portal/API ED Sign-out <Nadja Sequeira MD - Last Filed: 07/10/24 18:31> Cosign ED Attending Cosignature Attestation: I was immediately available in the department for consultation throughout this patient's visit. Nadja Sequeira MD
[2024-07-10 11:15] VITALS: BP 136/84; PULSE 61; RESP 18; O2SAT 99
== END 2024-07-10 11:30 | disposition home or self-care (01) ==
PROVIDERS: Emergency Provider Physician Assistant Medical; PCP Family Medicine
DX: I83.891 Varicose veins of right lower extremity with other complications (principal)
CPT/HCPCS: 99281

== ENCOUNTER 2025-01-13 16:37 | Emergency (ER) | payer OTHER, SELFPAY ==
[2025-01-13 16:40] VITALS: BP 148/87; PULSE 69; RESP 18; TEMP 36.4; O2SAT 97; BMI 47.2
--- NOTE | 2025-01-13 16:54 | PC.NURSE ---
Pt denies any urinary sx,pt denies loss bowel/bladder. Pt denies injury. Pt has not taken Rx for pain since approx 0700 this am. Pt is ambulatory,pain increased when changing position.
--- NOTE | 2025-01-13 17:40 | ED_ITS ---
HPI - Back Pain/Injury <Concha Angel PA-C - Last Filed: 01/13/25 19:47> General Chief Complaint: Back Pain/Injury Stated Complaint: back px Time Seen by Provider: 01/13/25 17:01 History of Present Illness HPI Narrative: Ms. Kingsley is a very pleasant 44-year-old female past medical history of hypertension, hyperlipidemia presents to the emergency department for left mid back pain since last night. Patient states around this time yesterday she developed spasms of the left thoracic side of her back. States that there was no injury to this area however she did accidentally fall asleep in the recliner the night before which may have precipitated the symptoms. States that the pain is worse with standing up. The pain does not radiate. No leg pain, bowel or bladder incontinence, dysuria, hematuria, fevers, chest pain, shortness of breath, flu-like symptoms. Related Data Previous Rx's Medication Instructions Recorded lorazepam 0.5 mg tablet 0.5 mg PO ONCE PRN anxiety #2 tabs 11/02/23 fluvoxamine 150 mg 150 mg PO BEDTIME #90 caps 09/29/24 capsule,extended release 24 hr amlodipine 5 mg-benazepril 20 mg 1 cap PO DAILY #90 caps 12/05/24 capsule escitalopram oxalate 20 mg tablet 20 mg PO DAILY #90 tabs 12/05/24 lidocaine 5 % topical patch 1 patch topical DAILY #15 ea 01/13/25 (Lidoderm) methocarbamol 500 mg tablet 500 mg PO TID PRN muscle spasm #20 01/13/25 tabs naproxen 500 mg tablet 500 mg PO BID PRN pain #20 tabs 01/13/25 Allergies Allergy/AdvReac Type Severity Reaction Status Date / Time Penicillins [PENICILLINS] Allergy Severe anaphylaxis Verified 07/12/24 14:23 propoxyphene Allergy Intermediate SWELLING / Verified 07/12/24 14:23 [From RAMAN] RASH adhesive [ADHESIVE] Allergy Mild paper tape Verified 07/12/24 14:23 codeine [CODEINE] Allergy Mild rash and Verified 07/12/24 14:23 swelling latex [LATEX] Allergy Mild rash Verified 07/12/24 14:23 bupropion AdvReac Intermediate rage Verified 09/29/24 09:36 Review of Systems <Concha Angel PA-C - Last Filed: 01/13/25 19:47> Review of Systems ROS Unobtainable: All systems reviewed & are unremarkable except as noted in HPI and below Patient History <Concha Angel PA-C - Last Filed: 01/13/25 19:47> Medical History Atypical chest pain GERD (gastroesophageal reflux disease) Nausea Superficial thrombophlebitis Depression Anxiety Migraine headache Chest wall pain Electrical accident caused by domestic wiring and appliances Surgical History History of arthroscopic knee surgery Status post tonsillectomy and adenoidectomy Status post hysterectomy Social History marital status: Smoking Status: Former smoker alcohol intake: current (ON OCCASION ) substance use type: marijuana Smoking Status: Former smoker alcohol intake frequency: 0-2 drinks per day Exam <Concha Angel PA-C - Last Filed: 01/13/25 19:47> Narrative Exam Narrative: GENERAL: 44 year old patient appears stated age. Overweight patient, in no acute distress. HEAD: Atraumatic. Normocephalic. ENT: Nose without bleeding, purulent drainage. Throat without erythema, tonsillar hypertrophy or exudate. Airway patent. NECK: Trachea midline. Cervical ROM intact. CARDIOVASCULAR: Regular rate RESPIRATORY: ?Nonlabored respirations. ?Speaking in clear, full sentences. EXTREMITIES: No edema or joint tenderness. BACK: Subjective pain in left paraspinal thoracic region, with some reproducible spasm of this region. No CVA tenderness. No midline spinal tenderness. NEURO: AOx3. ?Clear speech. ?Moves all 4 extremities appropriately. Steady gait. SKIN: No rash or erythema of visible areas Initial Vital Signs Initial Vital Signs: Vital Signs Temperature 97.5 F L 01/13/25 16:40 Pulse Rate 69 01/13/25 16:40 Respiratory Rate 18 01/13/25 16:40 Blood Pressure 148/87 H 01/13/25 16:40 Pulse Oximetry 97 01/13/25 16:40 Oxygen Delivery Method Room Air 01/13/25 16:40 <Dhaval Bardales MD - Last Filed: 01/14/25 05:02> Initial Vital Signs Initial Vital Signs: Vital Signs Temperature 97.5 F L 01/13/25 16:40 Pulse Rate 69 01/13/25 16:40 Respiratory Rate 18 01/13/25 16:40 Blood Pressure 148/87 H 01/13/25 16:40 Pulse Oximetry 97 01/13/25 16:40 Oxygen Delivery Method Room Air 01/13/25 16:40 Course <Concha Angel PA-C - Last Filed: 01/13/25 19:47> Orders Ordered: Discontinued Medications Acetaminophen (Acetaminophen 325 Mg Tablet) 975 mg PO NOW ONE Stop: 01/13/25 17:46 Last Admin: 01/13/25 17:56 Dose: 975 mg Documented By: ES Ketorolac Tromethamine (Ketorolac 30 Mg/Ml Vial) 30 mg IM NOW ONE Stop: 01/13/25 17:46 Last Admin: 01/13/25 17:56 Dose: 30 mg Documented By: ES Lidocaine (Lidocaine 5% Patch) 1 each TOP NOW ONE Stop: 01/13/25 17:46 Last Admin: 01/13/25 17:56 Dose: 1 each Documented By: ES Methocarbamol (Methocarbamol 500 Mg Tablet) 1,000 mg PO NOW ONE Stop: 01/13/25 17:46 Last Admin: 01/13/25 17:55 Dose: 1,000 mg Documented By: ES Vital Signs Vital signs: Vital Signs - 8 hr 01/13/25 16:40 Temperature 97.5 F L Pulse Rate 69 Respiratory Rate 18 Blood Pressure 148/87 H Pulse Oximetry 97 Oxygen Delivery Method Room Air <Dhaval Bardales MD - Last Filed: 01/14/25 05:02> Orders Ordered: Discontinued Medications Acetaminophen (Acetaminophen 325 Mg Tablet) 975 mg PO NOW ONE Stop: 01/13/25 17:46 Last Admin: 01/13/25 17:56 Dose: 975 mg Documented By: ES Ketorolac Tromethamine (Ketorolac 30 Mg/Ml Vial) 30 mg IM NOW ONE Stop: 01/13/25 17:46 Last Admin: 01/13/25 17:56 Dose: 30 mg Documented By: ES Lidocaine (Lidocaine 5% Patch) 1 each TOP NOW ONE Stop: 01/13/25 17:46 Last Admin: 01/13/25 17:56 Dose: 1 each Documented By: WARNER Methocarbamol (Methocarbamol 500 Mg Tablet) 1,000 mg PO NOW ONE Stop: 01/13/25 17:46 Last Admin: 01/13/25 17:55 Dose: 1,000 mg Documented By: WARNER Vital Signs Vital signs: Vital Signs - 8 hr 01/13/25 16:40 Temperature 97.5 F L Pulse Rate 69 Respiratory Rate 18 Blood Pressure 148/87 H Pulse Oximetry 97 Oxygen Delivery Method Room Air MDM - Back Pain/Injury <Concha Angel PA-C - Last Filed: 01/13/25 19:47> Medical Records Attestation: I reviewed the patient's medical records. Lab Data Labs: Point of Care Testing Test Results Negative Urine Dip Bedside Urine Glucose Negative Bedside Urine Bilirubin - Negative Bedside Urine Ketone - Negative Urine Specific [place] 1.010 Bedside Urine Occult Blood - Negative Bedside Urine pH 6.0 Bedside Urine Protein - Negative Bedside Urine Urobilinogen - Negative Bedside Urine Nitrite - Negative Bedside Urine Leukocytes - Negative Esterase MDM Narrative Medical decision making narrative: 44-year-old female past medical history of hypertension, hyperlipidemia presents to the emergency department for left mid back pain since last night. Differential diagnosis includes but is not limited to muscle spasm, muscle strain, degenerative disc disease, pyelonephritis, etc. On exam the patient is in no acute distress, nontoxic appearing, vital signs appropriate, neurovascularly intact, ambulatory. She has isolated pain of the left thoracic paraspinal lumbar region, with reproducible muscle spasm in this area. UA negative for blood or infx. No history of trauma, numbness, tingling, or weakness. We will treat with Toradol, acetaminophen, methocarbamol, Lidoderm. Recommended rest, heat therapy, gentle stretching, follow up with PCP. Prescribed naproxen, Robaxin and Lidoderm for home in addition to the use of [id number] acetaminophen. Discussed strict ED return precaution with the patient. She verbalized understanding of all information and is happy with this plan. She is stable for discharge home. <Dhaval Bardales MD - Last Filed: 01/14/25 05:02> Lab Data Labs: Point of Care Testing Test Results Negative Urine Dip Bedside Urine Glucose Negative Bedside Urine Bilirubin - Negative Bedside Urine Ketone - Negative Urine Specific [place] 1.010 Bedside Urine Occult Blood - Negative Bedside Urine pH 6.0 Bedside Urine Protein - Negative Bedside Urine Urobilinogen - Negative Bedside Urine Nitrite - Negative Bedside Urine Leukocytes - Negative Esterase MDM Narrative Medical decision making narrative: 44-year-old female past medical history of hypertension, hyperlipidemia presents to the emergency department for left mid back pain since last night. Differential diagnosis includes but is not limited to muscle spasm, muscle strain, degenerative disc disease, pyelonephritis, etc. On exam the patient is in no acute distress, nontoxic appearing, vital signs appropriate, neurovascularly intact, ambulatory. She has isolated pain of the left thoracic paraspinal lumbar region, with reproducible muscle spasm in this area. UA negative for blood or infx. No history of trauma, numbness, tingling, or weakness. We will treat with Toradol, acetaminophen, methocarbamol, Lidoderm. Recommended rest, heat therapy, gentle stretching, follow up with PCP. Prescribed naproxen, Robaxin and Lidoderm for home in addition to the use of [id number] acetaminophen. Discussed strict ED return precaution with the patient. She verbalized understanding of all information and is happy with this plan. She is stable for discharge home. who is available for consultation during this patient's time in the emergency department however they were primarily seen by above JOSE M, I was not consulted on for this patient however was not involved in her care. Discharge Plan Departure Patient Disposition: Home Clinical Impression: Spasm of thoracic back muscle Instructions: DI for Back Spasm Activity Restrictions/Additional Instructions: Dear Ms. Kingsley, Thank you for coming to the emergency department. Today you were evaluated for left-sided back pain, and your physical exam is concerning for a muscle spasm in this area. I have prescribed you naproxen which is an anti-inflammatory pain medication in addition to methocarbamol which is a muscle relaxer, and Lidoderm which is a topical numbing patch. I would also like you to use acetaminophen/Tylenol with these medications, rest, perform gentle stretches and use heat therapy on this area of your back. Please follow up with your primary care doctor but return to the emergency department if you develop any new or worsening symptoms such as severe pain, weakness numbness or tingling, bowel or bladder problems, or any other concerns. Please follow up with your primary care doctor within the next 2-3 days for ER follow-up. (If you do not have a PCP you can call [phone]. ?to schedule an appointment with an [facility] Primary Care Provider) IF YOU DEVELOP ANY NEW OR WORSENING SYMPTOMS, RETURN TO THE ER! Please read the attached instructions, they highlight more specific treatments and interventions for you at home. Thank you for letting me participate in your care, Concha Angel PA-C Prescriptions: New naproxen 500 mg tablet 500 mg PO BID PRN (Reason: pain) Qty: 20 0RF methocarbamol 500 mg tablet 500 mg PO TID PRN (Reason: muscle spasm) Qty: 20 0RF lidocaine [Lidoderm] 5 % adhesive patch,medicated 1 patch topical DAILY Qty: 15 0RF Rx Instructions: leave on most painful area for up to 12 hrs No Action lorazepam 0.5 mg tablet 0.5 mg PO ONCE PRN (Reason: anxiety) Qty: 2 0RF Rx Instructions: to use before procedure amlodipine-benazepril 5-20 mg capsule 1 cap PO DAILY Qty: 90 1RF escitalopram oxalate 20 mg tablet 20 mg PO DAILY Qty: 90 1RF fluvoxamine 150 mg capsule,extended release 24hr 150 mg PO BEDTIME Qty: 90 0RF Referrals: Ernst Palma MD [Primary Care Provider] - Stand Alone Forms: Patient Portal/API/Survey
[2025-01-13] MEDS: methocarbamoL 500 MG TABLET 1000 MG PO (17:55)
[2025-01-13] MEDS: ACETAMINOPHEN 325 MG TABLET 975 MG PO (17:56)
[2025-01-13] MEDS: LIDOCAINE 5% PATCH 1 EACH TOP (17:56)
[2025-01-13] MEDS: KETOROLAC 30 MG/ML VIAL IM (17:56)
== END 2025-01-13 18:22 | disposition home or self-care (01) ==
PROVIDERS: Emergency Provider Physician Assistant; PCP Family Medicine
DX: M62.830 Muscle spasm of back (principal); M54.6 Pain in thoracic spine; I10 Essential (primary) hypertension; E78.5 Hyperlipidemia, unspecified
CPT/HCPCS: 81003; 81025; 96372; 99283; 99284; J1885

== ENCOUNTER 2025-07-31 09:38 | Emergency (ER) | payer OTHER, SELFPAY ==
[2025-07-31] VITALS (13 sets, daily range): BP systolic 127–180; BP diastolic 62–95; PULSE 57–72; RESP 16; TEMP 37.1; O2SAT 98–100; BMI 50.3
[2025-07-31 10:43] LABS: Add Manual Diff / Slide Review NO; Hematocrit 41.0 % (36-46); Hemoglobin 14.1 g/dL (12.0-16.0); Lymphocytes Absolute Auto 2400 /uL (1100-4500); Mean Corpuscular HGB Conc 34.4 % (30-36); Mean Corpuscular Hemoglobin 30.7 PG (26-34); Mean Corpuscular Volume 89.3 fL (80-100); Platelet Count 292 X10^3/uL (150-400)
--- NOTE | 2025-07-31 10:46 | ED.ABDPAIN ---
HPI - Abdominal Pain General Chief Complaint: Abdominal Pain Stated Complaint: Left lower stomach pain possible Ovary pain Time Seen by Provider: 07/31/25 09:59 Source: patient Mode of arrival: Family Vehicle History of Present Illness HPI narrative: Patient is a 44-year-old female history of anxiety depression presenting to day with left lower quadrant pain. She reports that she woke up with it. It is pinpoint. Denies any back pain no nausea or vomiting. No bloody stool. She does not have any history of nephrolithiasis or diverticulitis. She has had ovarian cysts before but mostly on the right side. No chest pain shortness of breath. No prior surgeries. Related Data Previous Rx's ?Medication ?Instructions ?Recorded amlodipine 5 mg-benazepril 20 mg 1 cap PO DAILY #90 caps 07/24/25 capsule escitalopram oxalate 10 mg tablet 10 mg PO DAILY #90 tabs 07/24/25 ciprofloxacin HCl 500 mg tablet 500 mg PO BID #20 tabs 07/31/25 (Cipro) metronidazole 500 mg tablet 500 mg PO Q8H 10 days #30 tabs 07/31/25 Allergies Allergy/AdvReac Type Severity Reaction Status Date / Time Penicillins (PENICILLINS) Allergy Severe anaphylaxis Verified 07/31/25 10:01 propoxyphene (From Allergy Intermediate SWELLING / Verified 07/31/25 10:01 DARVOCET-N) RASH adhesive (ADHESIVE) Allergy Mild paper tape Verified 07/31/25 10:01 codeine (CODEINE) Allergy Mild rash and Verified 07/31/25 10:01 swelling latex (LATEX) Allergy Mild rash Verified 07/31/25 10:01 bupropion AdvReac Intermediate rage Verified 07/31/25 10:01 Patient History Medical History Atypical chest pain GERD (gastroesophageal reflux disease) Nausea Superficial thrombophlebitis Depression Anxiety Migraine headache Chest wall pain Electrical accident caused by domestic wiring and appliances Surgical History History of arthroscopic knee surgery Status post tonsillectomy and adenoidectomy Status post hysterectomy Social History marital status: Smoking Status: Current every day smoker alcohol intake: current (ON OCCASION ) substance use type: marijuana Smoking Status: Current every day smoker alcohol intake frequency: 0-2 drinks per day Exam Initial Vital Signs Initial Vital Signs: Vital Signs Pulse Rate 72 07/31/25 09:56 Pulse Oximetry 98 07/31/25 09:56 GENERAL: Alert well-appearing 44-year-old and in no acute distress. HEENT: Head atraumatic,EOMI, pupils reactive, face symmetric, moist mucous membranes CARDIOVASCULAR: Regular rate and rhythm without murmurs, rubs or gallops. RESPIRATORY: Breath sounds equal bilaterally, no wheezes rales or rhonchi. ABDOMEN: Soft, tender left lower quadrant no guarding no real : No CVA tenderness EXTREMITIES: Normal range of motion, no clubbing or edema. Neurovascularly intact NEUROLOGICAL: Alert and oriented x4.Normal gait and speech. SKIN: Warm, dry, no laceration, no petechiae, no rashes or lesions. Course Orders Ordered: ED Orders 07/31/25 10:30 Complete Blood Count AUTO DIFF Stat Comprehensive Metabolic Panel Stat Lipase Stat 07/31/25 10:49 CT abdomen pelvis w con Stat Discontinued Medications Ketorolac Tromethamine (Ketorolac 30 Mg/Ml Vial) 15 mg IV NOW ONE Stop: 07/31/25 10:50 Last Admin: 07/31/25 11:21 Dose: 15 mg Documented By: STEPHY Ondansetron HCl (Ondansetron 4 Mg/2 Ml Inj) 4 mg IV NOW PRN PRN Reason: Nausea And Vomiting Ondansetron HCl (Ondansetron 4 Mg Odt) 4 mg PO NOW PRN PRN Reason: Nausea And Vomiting Vital Signs Vital signs: Vital Signs - 8 hr 07/31/25 09:56 07/31/25 10:00 07/31/25 10:00 Temperature Pulse Rate 72 71 Respiratory Rate Blood Pressure 151/91 H Pulse Oximetry 98 98 Oxygen Delivery Method 07/31/25 10:01 07/31/25 10:33 07/31/25 10:34 Temperature 98.8 F Pulse Rate 72 64 Respiratory Rate 16 Blood Pressure 148/79 H 127/76 Pulse Oximetry 98 100 Oxygen Delivery Method Room Air 07/31/25 10:34 07/31/25 11:00 07/31/25 11:00 Temperature Pulse Rate 65 60 Respiratory Rate Blood Pressure 131/62 Pulse Oximetry 98 99 Oxygen Delivery Method 07/31/25 11:30 07/31/25 11:30 07/31/25 11:45 Temperature Pulse Rate 65 Respiratory Rate Blood Pressure 142/82 H 180/95 H Pulse Oximetry 100 Oxygen Delivery Method 07/31/25 11:45 07/31/25 11:56 07/31/25 11:56 Temperature Pulse Rate 57 L 62 Respiratory Rate Blood Pressure 166/78 H Pulse Oximetry 99 99 Oxygen Delivery Method 07/31/25 12:00 07/31/25 12:01 07/31/25 12:01 Temperature Pulse Rate 60 60 Respiratory Rate Blood Pressure 149/90 H Pulse Oximetry 100 100 Oxygen Delivery Method 07/31/25 12:30 07/31/25 12:31 07/31/25 12:31 Temperature Pulse Rate 66 66 Respiratory Rate Blood Pressure 149/85 H Pulse Oximetry 99 98 Oxygen Delivery Method MDM - Abdominal Pain Lab Data 07/31/25 10:30 07/31/25 10:30 Labs: Lab Results 07/31/25 Range/Units 10:30 WBC 11.2 H (4.5-11.0) X10^3/uL RBC 4.59 (4.0-5.2) X10^6/uL Hgb 14.1 (12.0-16.0) g/dL Hct 41.0 (36-46) % MCV 89.3 (80-100) fL MCH 30.7 (26-34) PG MCHC 34.4 (30-36) % RDW 13.3 (11.6-14.8) % Plt Count 292 (150-400) X10^3/uL Neut % (Auto) 69.8 (50-75) % Lymph % (Auto) 21.3 L (25-40) % [place] % (Auto) 6.8 (3-14) % Eos % (Auto) 1.1 L (2-4) % Baso % (Auto) 1.0 (0-2) % Neut # (Auto) 7800 H (5994-7558) /uL Lymph # (Auto) 2400 (2709-6649) /uL [place] # (Auto) 800 (0-900) /uL Eos # (Auto) 100 (0-450) /uL Baso # (Auto) 100 (0-100) /uL Sodium 136 L (137-145) mmol/L Potassium 3.8 (3.4-5.1) mmol/L Chloride 102 (98-107) mmol/L Carbon Dioxide 24 (22-32) mmol/L BUN 11 (7-17) mg/dL Creatinine 0.78 (0.52-1.04) mg/dL Estimated GFR > 60 (>60) mL/min BUN/Creatinine Ratio 14.1 (6-22) Glucose 134 H (70-99) mg/dL Calcium 8.8 (8.4-10.2) mg/dL Total Bilirubin 1.1 (0.2-1.3) mg/dL AST 30 (14-36) IU/L ALT 27 (<35) IU/L Alkaline Phosphatase 50 (38-126) U/L Total Protein 7.8 (6.3-8.2) g/dL Albumin 4.4 (3.5-5.0) g/dL Globulin 3.4 (1.7-4.1) g/dL Albumin/Globulin Ratio 1.3 (1.0-2.8) Lipase 122 (23-300) U/L Point of care testing: Point of Care Testing Test Results Negative Urine Dip Bedside Urine Glucose Negative Bedside Urine Bilirubin - Negative Bedside Urine Ketone - Negative Urine Specific [place] 1.015 Bedside Urine Occult Blood - Negative Bedside Urine pH 6.0 Bedside Urine Protein - Negative Bedside Urine Urobilinogen - Negative Bedside Urine Nitrite - Negative Bedside Urine Leukocytes - Negative Esterase Imaging Data CT scan - abdomen/pelvis: Radiologist's Impression: PROCEDURE: CT ABDOMEN PELVIS W CON INDICATIONS: LLQ pain TECHNIQUE: After the administration of intravenous contrast, axial sections acquired from the lung bases to the pubic symphysis. Coronal and sagittal reformats were performed. For radiation dose reduction, the following was used: automated exposure control, adjustment of mA and/or kV according to patient size. COMPARISON: [facility], CT, CT ABDOMEN PELVIS W CON, 12/08/2019, 9:07. FINDINGS: Image quality: Diagnostic. Lower Chest: No significant findings. ABDOMEN: Liver: No solid mass. Gallbladder: Absent. Biliary ducts: No pancreatic ductal dilatation. No peripancreatic fluid collection. Pancreas: No ductal dilation. Spleen: Size is within normal limits. Adrenal Glands: No adrenal nodules. Kidneys and Ureters: No hydronephrosis. No solid mass. No complex renal cystic lesion which requires follow up. Stomach and Bowel: Sigmoid colon diverticulosis. There is inflammatory change adjacent to this region. There is diverticulitis. No abscess. No free air. Normal appendix. No small bowel obstruction. The stomach is not distended. Peritoneum: No ascites. No gross pneumoperitoneum. Ventral Wall: No significant ventral hernia. Abdominal Nodes: No retroperitoneal or mesenteric adenopathy by size criteria. Vessels: Aorta and inferior vena cava are normal in size. PELVIS: Pelvic Organs: Uterus appears absent or diminutive. Small clips in the pelvis. Bladder: No bladder wall thickening. No stone. Pelvic Nodes: No enlarged lymph nodes. Miscellaneous: No inguinal hernias are seen. Bones: No aggressive osseous abnormality. IMPRESSION: 1. Acute sigmoid colon diverticulitis. No abscess. 2. No hydronephrosis. Dictated by: Júnior Holman M.D. on 07/31/2025 at 12:[address] [facility] Narrative Medical decision making narrative: MDM CC: Left lower quadrant pain Complicating co-morbidities: Anxiety depression ovarian cyst Data collected from: Patient Medical records reviewed: Prior PCP Differential considered: Nephrolithiasis diverticulitis ovarian cyst constipation Exam documented above, pertinent findings include: Patient appears nontoxic BMI 50 tender left lower quadrant pain reproducible with palpation Lab Test results independently reviewed as above. Pertinent findings: CBC mild leukocytosis at 11.2 no anemia CMP no electrolyte abnormality Independently reviewed EKG as above Imaging studies independently reviewed: CT ab acute diverticulitis without perforation or abscess Consultations: None Treatments: Toradol Re-evaluations: Discussion: At this time 44-year-old female presenting today with left lower quadrant pain which started earlier today. She has mild leukocytosis of 12, CT confirms simple and uncomplicated diverticulitis. no need for any further workup. Outpatient treatment is appropriate. Discussed results with patient. Discharge Plan Departure Patient Disposition: Home Clinical Impression: Diverticulitis Instructions: DI for Diverticulitis Activity Restrictions/Additional Instructions: *You have been diagnosed with diverticulitis *What to do: At this time you may need a low-fiber diet *Continue to take medications as directed Cipro 500 mg twice a day for 10 days Flagyl 500 mg 3 times a day for 10 days *Follow up with your primary care provider in 2-3 days or call [phone] *Return to ER if you should have increasing pain fever bloody stool [or] any new, worsening or concerning symptoms Prescriptions: New metronidazole 500 mg tablet 500 mg PO Q8H 10 Days Qty: 30 0RF ciprofloxacin HCl [Cipro] 500 mg tablet 500 mg PO BID Qty: 20 0RF No Action escitalopram oxalate 10 mg tablet 10 mg PO DAILY Qty: 90 3RF amlodipine-benazepril 5-20 mg capsule 1 cap PO DAILY Qty: 90 3RF Referrals: Ernst Palma MD [Primary Care Provider, Family Practice] Stand Alone Forms: Patient Portal/API
--- NOTE | 2025-07-31 10:49 | DI.CT.S_ITS ---
PROCEDURE: CT ABDOMEN PELVIS W CON INDICATIONS: LLQ pain TECHNIQUE: After the administration of intravenous contrast, axial sections acquired from the lung bases to the pubic symphysis. Coronal and sagittal reformats were performed. For radiation dose reduction, the following was used: automated exposure control, adjustment of mA and/or kV according to patient size. COMPARISON: [facility], CT, CT ABDOMEN PELVIS W CON, 12/08/2019, 9:07. FINDINGS: Image quality: Diagnostic. Lower Chest: No significant findings. ABDOMEN: Liver: No solid mass. Gallbladder: Absent. Biliary ducts: No pancreatic ductal dilatation. No peripancreatic fluid collection. Pancreas: No ductal dilation. Spleen: Size is within normal limits. Adrenal Glands: No adrenal nodules. Kidneys and Ureters: No hydronephrosis. No solid mass. No complex renal cystic lesion which requires follow up. Stomach and Bowel: Sigmoid colon diverticulosis. There is inflammatory change adjacent to this region. There is diverticulitis. No abscess. No free air. Normal appendix. No small bowel obstruction. The stomach is not distended. Peritoneum: No ascites. No gross pneumoperitoneum. Ventral Wall: No significant ventral hernia. Abdominal Nodes: No retroperitoneal or mesenteric adenopathy by size criteria. Vessels: Aorta and inferior vena cava are normal in size. PELVIS: Pelvic Organs: Uterus appears absent or diminutive. Small clips in the pelvis. Bladder: No bladder wall thickening. No stone. Pelvic Nodes: No enlarged lymph nodes. Miscellaneous: No inguinal hernias are seen. Bones: No aggressive osseous abnormality. IMPRESSION: 1. Acute sigmoid colon diverticulitis. No abscess. 2. No hydronephrosis. Dictated by: Júnior Holman M.D. on 07/31/2025 at 12:02 Approved by: Júnior Holman M.D. on 07/31/2025 at 12:18
[2025-07-31 10:55] LABS: Alanine Aminotransferase 27 IU/L (<35); Albumin 4.4 g/dL (3.5-5.0); Albumin Globulin Ratio 1.3 (1.0-2.8); Alkaline Phosphatase 50 U/L (38-126); Blood Urea Nitrogen 11 mg/dL (7-17); Calcium 8.8 mg/dL (8.4-10.2); Carbon Dioxide 24 mmol/L (22-32); Chloride 102 mmol/L (98-107); Estimated Glomerular Filt Rate > 60 mL/min (>60); Globulin 3.4 g/dL (1.7-4.1); Glucose 134 mg/dL (70-99); HEMOLYSIS < 15 (0-50); Lipase 122 U/L (23-300); Potassium 3.8 mmol/L (3.4-5.1); Sodium 136 mmol/L (137-145); Total Protein 7.8 g/dL (6.3-8.2)
[2025-07-31] MEDS: KETOROLAC 30 MG/ML VIAL 15 MG IV (11:21)
== END 2025-07-31 12:54 | disposition home or self-care (01) ==
PROVIDERS: Emergency Provider Emergency Medicine; PCP Family Medicine
DX: K57.92 Diverticulitis of intestine, part unspecified, without perforation or abscess without bleeding (principal)
CPT/HCPCS: 36415; 74177; 80053; 81003; 81025; 83690; 85025; 96374; 99284; J1885; Q9967